=== PATIENT | male | born 1950 | race Two or more races ===

== ENCOUNTER 2020-06-10 17:22 | Inpatient (IN) | payer MEDICARE, OTHER ==
[~2020-06-10] VITALS: Ht 175.3 cm; Wt 59.2 kg
--- NOTE | 2020-06-10 19:43 | NUR ---
Patient just arrived in the unit via Ambulance accompanied by 2 EMT. Awake, alert and oriented x 4, able to follow command. Denies any pain/discomforts at this time. Colostomy bag in placed intact and patent in LLQ with small amount of liquid pinkish in color. Mid abdomen incision site dry and intact with dry dressing in placed. Routine admission care done. Plan of care initiated.
[2020-06-10 20:00] VITALS: BP 135/74
[2020-06-10] MEDS ORDERED: Z GUARD REMEDY PASTE 57 GM TUBE TOP PRN (20:00)
[2020-06-10] MEDS ORDERED: ENOX40DI SQ (21:01)
[2020-06-10] MEDS ORDERED: METH10TA2 PO (21:01)
[2020-06-11 04:00] VITALS: BP 126/64
--- NOTE | 2020-06-11 05:40 | NUR ---
Shift End Report: VS stable. Slept good. No complaint presented all night. Colostomy on LLQ remain intact and patent. Able to move all extremities with slight restrictions. No significant event reported. Continue current rehab plan of care.
--- NOTE | 2020-06-11 06:00 | NUR ---
No urine the whole night reported. Bladder scan performed, obtained 336 cc. Patient denies any bladder discomforts, slightly bladder distention noted but most, scrotal and penile area swollen. Ashlie Kumar NP made aware with order to perform In and out catheterization. Charge nurse and patient made aware.
--- NOTE | 2020-06-11 06:53 | NUR ---
In and out performed obtained 500 cc dark elijah colored urine. Patient tolerated procedure well.
[2020-06-11 08:31] VITALS: BP 111/73
[2020-06-11] MEDS: ENOXAPARIN SODIUM 40 MG/0.4 ML DISP.SYRIN SQ SCH (08:36)
[2020-06-11] MEDS ORDERED: METHADONE HCL 10 MG TABLET PO SCH (09:00)
--- NOTE | 2020-06-11 10:21 | NUR ---
patient stated he takes 70mg of methadone every day, contacted dr vel oscar to give methadone 70mg every day, spoke to pharmacist and information given to pharmacist about [facility].
[2020-06-11] MEDS ORDERED: METHADONE HCL 10 MG TABLET PO ONE (11:19)
--- NOTE | 2020-06-11 15:30 | NUR ---
patient is alert, oriented x4, verbally responsive, no sob, resp even nonlabored, skin warm and dry to touch, no chills, no fever, no nausea, no vomiting, abdomen incision is clean and dry, adrienne are intact, no drainage, no malodorous, dressing changed, ostomy is intact, noted with liquid stool, performed straight cath, unable to urinate, no distress noted
[2020-06-11 16:00] VITALS: BP 124/72
--- NOTE | 2020-06-11 17:41 | NUR ---
Ostomy care provided, stoma is red in color, no distress noted.
--- NOTE | 2020-06-11 19:30 | NUR ---
Received patient awake, alert in bed, quite apprehensive, calm, presented complaint about his medications. Instructed patient that whatever medications due will be given as needed and ordered. Colostomy bag intact and patent with small amount of liquid output. Mid abdominal dressing clean, dry and intact. Safety measures and fall prevention maintained. Continue care as planned.
[2020-06-11 20:00] VITALS: BP 131/70
--- NOTE | 2020-06-12 03:35 | NUR ---
Bladder scan performed, obtained 128 ml at this time. Patient denies any full bladder/discomforts. Tolerated procedure well.
[2020-06-12 04:00] VITALS: BP 127/69
[2020-06-12] MEDS: METHADONE HCL 10 MG TABLET PO SCH (05:43)
--- NOTE | 2020-06-12 06:49 | NUR ---
Another bladder scan performed 174 cc noted. No bladder distention/feeling fullness noted. Denies any bladder pain/discomforts.Will continue to monitor.
[2020-06-12 08:00] VITALS: BP 129/69
[2020-06-12] MEDS ORDERED: METHADONE HCL 10 MG TABLET PO SCH (09:00)
[2020-06-12] MEDS: ENOXAPARIN SODIUM 40 MG/0.4 ML DISP.SYRIN SQ SCH (09:00)
[2020-06-12 13:23] LABS: BASOPHILS # (AUTO) 0.1 K/uL (0.0-8.0); BASOPHILS % (AUTO) 0.6 % (0.0-2.0); CARBON DIOXIDE 30 mmol/L (21-32); CHLORIDE 97 mmol/L (98-107); CREATININE 0.6 mg/dL (0.6-1.3); GLUCOSE 72 mg/dL (74-106); HEMATOCRIT 30.8 % (36.7-47.1); HEMOGLOBIN 10.4 g/dL (12.5-16.3); LYMPHOCYTES # (AUTO) 0.8 K/uL (20.0-40.0); LYMPHOCYTES % (AUTO) 3.4 % (20.5-51.5); MEAN CORPUSCULAR HGB CONC 34 g/dL (32.5-36.3); MEAN CORPUSCULAR VOLUME 85.8 fL (73.0-96.2); MONOCYTES # (AUTO) 0.9 K/uL (2.0-10.0); PLATELET COUNT (AUTO) 469 K/uL (152-348); RED BLOOD CELL COUNT(AUTO) 3.59 MIL/uL (4.06-5.63); UREA NITROGEN, BLOOD 15 mg/dL (7-18); WHITE BLOOD COUNT (AUTO) 22.9 K/uL (3.6-10.2)
--- NOTE | 2020-06-12 15:45 | NUR ---
bladder scan done showed 352+ ml. got him up to [facility] to encourage void. voided 300ml. post void bladder scan done showed 0 ml in bladder
[2020-06-12 15:48] VITALS: BP 139/88
[2020-06-12] MEDS: ENSURE ENLIVE (VAN) 240 ML LIQUID PO SCH (18:19)
[2020-06-12 20:02] VITALS: BP 142/71
--- NOTE | 2020-06-12 20:45 | NUR ---
Patient alert and able to make needs known.No s/s of distress noted.On O2 at 3LPM via NC saturating at 93%.S/P exploratory laparoscopy 06/03/2020 surgical site with adrienne intact. Clean and dry. No bleeding or discharges noted.Denies pain at this time. Assisted patient to bedside commode,able to void with 200 ml urine output.Colostomy bag in place with liquid output.Safety measures in place. Will continue to monitor
[2020-06-13 04:50] VITALS: BP 133/74
[2020-06-13 05:25] LABS: BASOPHILS # (AUTO) 0.1 K/uL (0.0-8.0); BASOPHILS % (AUTO) 0.3 % (0.0-2.0); EOSINOPHILS # (AUTO) 0.1 K/uL (0.0-0.7); EOSINOPHILS % (AUTO) 0.3 % (0.0-7.0); HEMATOCRIT 27.5 % (36.7-47.1); HEMOGLOBIN 9.1 g/dL (12.5-16.3); LYMPHOCYTES # (AUTO) 0.9 K/uL (20.0-40.0); LYMPHOCYTES % (AUTO) 4.5 % (20.5-51.5); MEAN CORPUSCULAR HEMOGLOBIN 28.4 uug (23.8-33.4); MEAN CORPUSCULAR HGB CONC 33 g/dL (32.5-36.3); MEAN CORPUSCULAR VOLUME 85.6 fL (73.0-96.2); MONOCYTES % (AUTO) 5.3 % (0.0-11.0); NEUTROPHILS # (AUTO) 17.2 K/uL (1.8-8.9); NEUTROPHILS % (AUTO) 89.6 % (38.5-71.5); PLATELET COUNT (AUTO) 472 K/uL (152-348); RED BLOOD CELL COUNT(AUTO) 3.21 MIL/uL (4.06-5.63); WHITE BLOOD COUNT (AUTO) 19.2 K/uL (3.6-10.2)
[2020-06-13] MEDS: METHADONE HCL 10 MG TABLET PO SCH (05:53)
[2020-06-13 06:03] LABS: ALANINE AMINOTRANSFERASE 6 U/L (16-63); ALKALINE PHOSPHATASE 115 U/L (50-136); ASPARTATE AMINOTRANSFERASE 26 U/L (15-37); BILIRUBIN,TOTAL 0.7 mg/dL (0.2-1.0); CARBON DIOXIDE 34 mmol/L (21-32); CHLORIDE 101 mmol/L (98-107); CREATININE 0.6 mg/dL (0.6-1.3); GLUCOSE 102 mg/dL (74-106); MAGNESIUM 1.8 mg/dL (1.8-2.4); PHOSPHOROUS 3.1 mg/dL (2.5-4.9); POTASSIUM 4.4 mmol/L (3.5-5.1); TOTAL PROTEIN, SERUM 4.6 g/dL (6.4-8.2); UREA NITROGEN, BLOOD 14 mg/dL (7-18)
--- NOTE | 2020-06-13 06:27 | NUR ---
Patient voided well 2x .Compliant with medication and care.Received Albumin result 1.3 .MD nettles made aware. Will endorse to oncoming shift.
--- NOTE | 2020-06-13 07:30 | NUR ---
Received awake wanting to go to the bathroom, voided well in the commode. Alert and oriented. No c/o pain. No respiratory distress noted. Bed low and locked. Safety measures maintained. Needs attended.
[2020-06-13 08:00] VITALS: BP 137/68
[2020-06-13] MEDS: ENSURE ENLIVE (VAN) 240 ML LIQUID PO SCH ×3 (08:36→18:03)
[2020-06-13] MEDS: ENOXAPARIN SODIUM 40 MG/0.4 ML DISP.SYRIN SQ SCH (08:39)
--- NOTE | 2020-06-13 13:08 | NUR ---
Patient has voided 2x in the commode since beginning of shift.
[2020-06-13 16:15] VITALS: BP 139/71
--- NOTE | 2020-06-13 18:56 | NUR ---
Patient in bed, dozing on and off. No respiratory distress on 3lpm via nc. Denies pain. Seen by Paco Thomas NP this morning and report given. Patient voided well x3 during this shift. No hematuria noted. Safety measures maintained. Needs attended. Kept comfortable. Call light within reach.
[2020-06-13 19:41] VITALS: BP 148/76
--- NOTE | 2020-06-13 20:49 | NUR ---
Awake alert and oriented x3-4 with periods of forgetfulness at times. Has hx of explor lap wit Dr Ray. Abdominal dressing clean dry and intact with adrienne in placed. Denies any pain nor any discomfort. Has a colostomy with soft brownish stool noted. Fall precautions maintained. Siderails up for safety. Needs attended. Will monitor patient. O2 @ 3L via nasal cannula. pulse ox 96%.
--- NOTE | 2020-06-13 20:52 | NUR ---
INDIVIDUALIZED PLAN OF CARE
[2020-06-14 04:30] VITALS: BP 141/74
[2020-06-14] MEDS: METHADONE HCL 10 MG TABLET PO SCH (06:02)
[2020-06-14 08:00] VITALS: BP 133/66
--- NOTE | 2020-06-14 09:00 | NUR ---
Patient in bed, alert and oriented x 4 denies of any pain at this time, call light placed within reach. Patient on oxygen via nasal cannula at 3LPM saturating at 97%. Patient went off the unit for therapy and came back after an hour. All needs met in a timely manner. Call light within reach.
[2020-06-14] MEDS: ENOXAPARIN SODIUM 40 MG/0.4 ML DISP.SYRIN SQ SCH (09:08)
[2020-06-14] MEDS: ENSURE ENLIVE (VAN) 240 ML LIQUID PO SCH ×3 (09:08→17:00)
--- NOTE | 2020-06-14 16:00 | NUR ---
Colostomy bag intact and patient able to void using the bedside commode bladder is not distended.
[2020-06-14 16:30] VITALS: BP 125/74
--- NOTE | 2020-06-14 19:49 | NUR ---
Patient in bed, alert and oriented x 4 denies of any pain at this time, Patient ask for Urinal voided with no distress 225 ml no blader soft no distention noted call light placed within reach. Patient on oxygen via nasal cannula at 3LPM saturating 95%. colostomy bag intact noted with stool empty bag and cleaned. Safety measures observed. Call light with in reach.
[2020-06-14 20:07] VITALS: BP 145/75
[2020-06-15 05:09] VITALS: BP 141/78
--- NOTE | 2020-06-15 05:23 | NUR ---
Patient AXOX4 verbally responsive,on 3L/PM NC saturating 95% no SOB resp even nonlabored, skin warm and dry to touch. Abdomen incision is clean and dry, adrienne are intact, no drainage, no malodorous, dressing intact, ostomy noted with liquid stool, ostomy care provided. Patient utilizing urinal voiding well with no discomfort (900 ml) voided in this shift Slept intermittently, safety measures observed all time call light with in reach. Will endorse accordingly to AM shift.
[2020-06-15] MEDS: METHADONE HCL 10 MG TABLET PO SCH (06:04)
[2020-06-15 08:00] VITALS: BP 152/80
--- NOTE | 2020-06-15 08:30 | NUR ---
Patient is alert and oriented x 2-3 , patient is not so cooperative upon assessment. Assisted the patient to bedside commode to urinate after 2 hours patient wants to use the urinal , able to urinate , bladder is not distended , colostomy bag intact, dressing in the abdomen intact, all needs met promptly, call light placed within reach.
[2020-06-15] MEDS: ENSURE ENLIVE (VAN) 240 ML LIQUID PO SCH ×3 (09:00→17:00)
[2020-06-15] MEDS: ENOXAPARIN SODIUM 40 MG/0.4 ML DISP.SYRIN SQ SCH (09:33)
--- NOTE | 2020-06-15 11:30 | NUR ---
patient does not want to eat when encouraged to finish his ensure , patient said yes . After 30mins patient didnt drink his ensure. Asked patient what food he wants to I can call the dietary but patient stated " No I don't want to eat". Encouraged the patient to drink water as well.
[2020-06-15 16:00] VITALS: BP 153/86
[2020-06-15 20:52] VITALS: BP 153/75
[2020-06-15] MEDS: ACETAMINOPHEN 325 MG TABLET PO PRN (21:56)
--- NOTE | 2020-06-15 22:30 | NUR ---
Patient is alert and oriented X3, patient refuse to eat snack offer choice of ensure patient stated will try to finish. use the urinal ,voided times 2 with no discomfort bladder is not distended , ostomy bag intact, dressing in the abdomen intact, pt c/o pain mild pain PRN Tylenol administered as ordered and non pharmacological efforts initiated. All needs anticipated,call light placed within reach.
--- NOTE | 2020-06-15 23:57 | NUR ---
Patient resting in bed, pain relieved, intermittent sleeping, finished ensure, fluids encouraged, kept clean and dry. All needs anticipated. Kept call light with in reach.
[2020-06-16 04:35] VITALS: BP 115/73
[2020-06-16] MEDS: METHADONE HCL 10 MG TABLET PO SCH (05:39)
[2020-06-16 07:50] VITALS: BP 163/88
[2020-06-16] MEDS: ENOXAPARIN SODIUM 40 MG/0.4 ML DISP.SYRIN SQ SCH (09:43)
[2020-06-16] MEDS: ENSURE ENLIVE (VAN) 240 ML LIQUID PO SCH ×3 (09:59→17:00)
--- NOTE | 2020-06-16 10:00 | NUR ---
Patient in bed alert , able to void using urinal , bladder is not distended. Urine yellow in color. Colostomy bag intact. Encourage patient to eat but patient only wants to take a sip of ensure. All needs met in a timely [id number]. Call light placed within reach. On oxygen via nasal cannula at 3lpm saturating at 95%
[2020-06-16] MEDS: ACETAMINOPHEN 325 MG TABLET PO PRN (10:56)
--- NOTE | 2020-06-16 19:00 | NUR ---
Patient dressing was changed, colostomy bag changed and emptied the urinal .
[2020-06-16 21:02] VITALS: BP 173/89
[2020-06-16] MEDS ORDERED: PIPERACILLIN SODIUM/TAZOBACTAM 3.375 G in IV DEXTROSE 5% 50 ML IV SCH (22:00)
[2020-06-16] MEDS ORDERED: PIPERACILLIN/TAZOBACTAM/D5W 100 ML IV ONE (22:18)
[2020-06-16] MEDS: PIPERACILLIN SODIUM/TAZOBACTAM 3.375 G in IV DEXTROSE 5% 50 ML IV SCH (22:38)
--- NOTE | 2020-06-17 00:08 | NUR ---
Resting in bed. AAox3-4 VSS Mid abdominal dressing intact Patient started on IV ABT tolerated well. No ill effects noted. Left hand INT flushed and patent. Voiding well. Needs attended. Will monitor patient.
--- NOTE | 2020-06-17 00:27 | NUR ---
awake alert and oriented x3-4 needs attended. Colostomy bag intact, functioning well with moderate amount of soft BM noted. Voiding well in the urinal. Fall precautions maintained. Siderails up for safety. Seen by infectious disease. Patient started on zosyn piperacillin 3.375 q 8 hrs. Tolerated well. No ill effects noted. Will monitor patient. A
[2020-06-17 05:02] VITALS: BP 141/85
[2020-06-17] MEDS: METHADONE HCL 10 MG TABLET PO SCH (05:26)
[2020-06-17] MEDS: PIPERACILLIN SODIUM/TAZOBACTAM 3.375 G in IV DEXTROSE 5% 50 ML IV SCH (05:27)
[2020-06-17 07:08] LABS: BASOPHILS # (AUTO) 0.1 K/uL (0.0-8.0); BASOPHILS % (AUTO) 0.5 % (0.0-2.0); EOSINOPHILS # (AUTO) 0.2 K/uL (0.0-0.7); EOSINOPHILS % (AUTO) 1.5 % (0.0-7.0); HEMATOCRIT 28.4 % (36.7-47.1); HEMOGLOBIN 9.9 g/dL (12.5-16.3); LYMPHOCYTES # (AUTO) 0.7 K/uL (20.0-40.0); LYMPHOCYTES % (AUTO) 6.9 % (20.5-51.5); MEAN CORPUSCULAR HEMOGLOBIN 29.9 uug (23.8-33.4); MEAN CORPUSCULAR HGB CONC 35 g/dL (32.5-36.3); MEAN CORPUSCULAR VOLUME 85.4 fL (73.0-96.2); MONOCYTES % (AUTO) 9.9 % (0.0-11.0); NEUTROPHILS # (AUTO) 8.1 K/uL (1.8-8.9); NEUTROPHILS % (AUTO) 81.2 % (38.5-71.5); PLATELET COUNT (AUTO) 664 K/uL (152-348); RED BLOOD CELL COUNT(AUTO) 3.32 MIL/uL (4.06-5.63)
[2020-06-17 07:23] LABS: CARBON DIOXIDE 38 mmol/L (21-32); CHLORIDE 96 mmol/L (98-107); CREATININE 0.5 mg/dL (0.6-1.3); GLUCOSE 135 mg/dL (74-106); MAGNESIUM 1.8 mg/dL (1.8-2.4); PHOSPHOROUS 2.4 mg/dL (2.5-4.9); POTASSIUM 3.2 mmol/L (3.5-5.1); UREA NITROGEN, BLOOD 7 mg/dL (7-18)
[2020-06-17 07:36] VITALS: BP 115/76
[2020-06-17] MEDS: ENOXAPARIN SODIUM 40 MG/0.4 ML DISP.SYRIN SQ SCH (08:17)
[2020-06-17] MEDS: ENSURE ENLIVE (VAN) 240 ML LIQUID PO SCH ×3 (08:17→14:02)
[2020-06-17] MEDS ORDERED: POTASSIUM CHLORIDE 20 MEQ TAB.PRT.SR PO ONE (09:15)
[2020-06-17] MEDS: ACETAMINOPHEN 325 MG TABLET PO PRN ×2 (10:33→17:28)
--- NOTE | 2020-06-17 12:35 | NUR ---
Patient is alert, oriented x4, verbally responsive, no sob, resp even nonlabored, skin warm and dry to touch, abdomen incision is clean and dry, colostomy changed, medium formed BM in the colostomy, stoma is red in color, patient is saying he has a pain in his stomach, pointed to left lower abdomen, dr murdock made aware, Tylenol administered, did not help much, contacted dr crowder for pain management, waiting for response, patient made aware
[2020-06-17] MEDS: ONDANSETRON 4 MG/2 ML VIAL IV PRN (13:13)
[2020-06-17] MEDS: PIPERACILLIN SODIUM/TAZOBACTAM 3.37 G in IV DEXTROSE 5% 100 ML IV SCH ×2 (13:28→21:05)
[2020-06-17] MEDS ORDERED: HYDROMORPHONE 1 MG/1 ML DISP.SYRIN IV ONE (13:30)
[2020-06-17 14:52] VITALS: BP 140/77
[2020-06-17 14:52] LABS: BAND % (MANUAL) 2 % (0-10); LYMPHOCYTES % (MANUAL) 5 % (20-40); MONOCYTES % (MANUAL) 9 % (2-10); NEUTROPHILS % (MANUAL) 84 % (42-75)
--- NOTE | 2020-06-17 15:42 | NUR ---
patient verbalizing anxiety, concerned addressed, questions answered, stayed with patient, spoke to dr murdock, with order to do psych eval, dr nicholas made aware about consult
[2020-06-17] MEDS ORDERED: NEUTRA PHOS PACKET PO ONE (16:30)
--- NOTE | 2020-06-17 17:02 | NUR ---
KUB result is reviewed by dr murdock, with no order at this time, patient has liquid stool dark brown color in the colostomy bag, bowel sounds are active in all 4 quadrants, patient still complaining dull pain in stomach and mild nausea. continue to monitor
--- NOTE | 2020-06-17 20:15 | NUR ---
INTERDISCIPLINARY TEAM CONFERENCE
[2020-06-17] MEDS: MIRTAZAPINE 15 MG TABLET PO SCH (20:23)
[2020-06-17 20:37] VITALS: BP 148/67
--- NOTE | 2020-06-17 20:53 | NUR ---
resting in bed watching TV upon initial rounds. VSS. No acute distress noted. Kept comfortable. Patient on IV ABT given as scheduled. No ill effects noted. Colostomy intact, dark stools noted. Voiding frequently in the urinal. VSS. Will monitor patient. Fall precautions maintained. Siderails up for safety.
[2020-06-18 04:00] VITALS: BP 141/70
[2020-06-18] MEDS: METHADONE HCL 10 MG TABLET PO SCH (05:28)
[2020-06-18] MEDS: PIPERACILLIN SODIUM/TAZOBACTAM 3.37 G in IV DEXTROSE 5% 100 ML IV SCH ×3 (05:29→21:20)
--- NOTE | 2020-06-18 05:54 | NUR ---
End of shift notes: Slept well most of the shift. No acute distress noted. IV ABT given as schedule. No ill effects noted. All needs attended. VSS.
[2020-06-18 06:20] LABS: CARBON DIOXIDE 35 mmol/L (21-32); CHLORIDE 101 mmol/L (98-107); CREATININE 0.5 mg/dL (0.6-1.3); GLUCOSE 85 mg/dL (74-106); PHOSPHOROUS 2.6 mg/dL (2.5-4.9); POTASSIUM 4.3 mmol/L (3.5-5.1); UREA NITROGEN, BLOOD 10 mg/dL (7-18)
[2020-06-18 07:55] VITALS: BP 135/81
[2020-06-18] MEDS: ENOXAPARIN SODIUM 40 MG/0.4 ML DISP.SYRIN SQ SCH ×2 (09:00→12:24)
[2020-06-18] MEDS: ENSURE ENLIVE (VAN) 240 ML LIQUID PO SCH (09:11)
[2020-06-18 09:46] LABS: BASOPHILS # (AUTO) 0.1 K/uL (0.0-8.0); BASOPHILS % (AUTO) 0.7 % (0.0-2.0); EOSINOPHILS # (AUTO) 0.5 K/uL (0.0-0.7); EOSINOPHILS % (AUTO) 3.9 % (0.0-7.0); HEMATOCRIT 34.3 % (36.7-47.1); HEMOGLOBIN 11.4 g/dL (12.5-16.3); LYMPHOCYTES # (AUTO) 1.9 K/uL (20.0-40.0); LYMPHOCYTES % (AUTO) 14.9 % (20.5-51.5); MEAN CORPUSCULAR HEMOGLOBIN 28.8 uug (23.8-33.4); MEAN CORPUSCULAR HGB CONC 33 g/dL (32.5-36.3); MEAN CORPUSCULAR VOLUME 86.8 fL (73.0-96.2); MONOCYTES # (AUTO) 1.4 K/uL (2.0-10.0); MONOCYTES % (AUTO) 10.6 % (0.0-11.0); NEUTROPHILS % (AUTO) 69.9 % (38.5-71.5); PLATELET COUNT (AUTO) 793 K/uL (152-348); RED BLOOD CELL COUNT(AUTO) 3.95 MIL/uL (4.06-5.63); WHITE BLOOD COUNT (AUTO) 12.9 K/uL (3.6-10.2)
[2020-06-18 10:29] LABS: *OCCULT BLOOD STOOL NEGATIVE (NEGATIVE)
[2020-06-18] MEDS: ONDANSETRON 4 MG/2 ML VIAL IV PRN (12:33)
--- NOTE | 2020-06-18 13:42 | NUR ---
patient is alert, oriented x4, no sob, continue supplemental oxygen, abdomen incision is clean and dry, no drainage, no malodor noted, colostomy intact, drainage large formed stool, stoma is red in color, patient denied any stomach pain today, however still complained nausea, and poor appetite, which is being managed with medications as ordered, patient noted with sad facial expression, examined by dr Watson psychiatrist, will be started on additional antidepressant as recommended by psychiatrist.
[2020-06-18] MEDS: SERTRALINE HCL 50 MG TABLET PO SCH (14:07)
[2020-06-18 15:26] VITALS: BP 122/80
[2020-06-18] MEDS: MIRTAZAPINE 15 MG TABLET PO SCH (20:25)
[2020-06-18 20:31] VITALS: BP 122/69
--- NOTE | 2020-06-18 22:04 | NUR ---
Condition unchanged. Colostomy intact, dark black stools noted. Abdominal dressing in placed. Denies any pain nor any discomfort. Voiding well in the urinal. IV ABT given as scheduled. No side effects noted. No acute distress noted. Will monitor patient.
[2020-06-19 04:00] VITALS: BP 121/78
[2020-06-19] MEDS: METHADONE HCL 10 MG TABLET PO SCH (05:43)
[2020-06-19] MEDS: PIPERACILLIN SODIUM/TAZOBACTAM 3.37 G in IV DEXTROSE 5% 100 ML IV SCH ×3 (05:43→21:09)
[2020-06-19 08:00] VITALS: BP 132/79
[2020-06-19] MEDS: ENOXAPARIN SODIUM 40 MG/0.4 ML DISP.SYRIN SQ SCH (08:27)
[2020-06-19] MEDS: ENSURE ENLIVE (VAN) 240 ML LIQUID PO SCH (08:27)
[2020-06-19] MEDS: SERTRALINE HCL 50 MG TABLET PO SCH (08:27)
[2020-06-19] MEDS: ENSURE WITH FIBER 237 ML LIQUID (CHOCOLATE) PO SCH ×5 (09:57→20:13)
[2020-06-19] MEDS: ACETAMINOPHEN 325 MG TABLET PO PRN (12:24)
[2020-06-19] MEDS: ONDANSETRON 4 MG/2 ML VIAL IV PRN (12:24)
--- NOTE | 2020-06-19 15:15 | NUR ---
abdomen incision is clean and dry, adrienne still intact, no drainage noted, no malodorous noted, colostomy intact, draining formed large stool, patient still noted with poor appetite, however drinking chocolate ensure, using urinal, voiding well, no sob, resp even nonlabored, ambulated with PT, heels floated on pillows while in bed ,sat on chair today good amount of time, tolerated well, no distress noted, denied any suicidal thoughts. continue to monitor
[2020-06-19 16:00] VITALS: BP 100/64
[2020-06-19 20:00] VITALS: BP 124/76
[2020-06-19] MEDS: MIRTAZAPINE 15 MG TABLET PO SCH (20:13)
--- NOTE | 2020-06-19 22:56 | NUR ---
Received pt resting in bed. AAO x4. No acute distress noted. Denies pain/ discomfort. Denies nausea. Noted poor appetite but tolerates chocolate Ensure. Pt is on IV antibiotic. Due meds given as ordered. Colostomy bag patent and intact, stoma is red in color. Abdomen incision, clean and dry, no drainage noted. Turned and repositioned. Both heels offloaded. Safety measures maintained. Call light and personal items within reach. Will continue to monitor.
[2020-06-20 04:00] VITALS: BP 129/76
[2020-06-20] MEDS: PIPERACILLIN SODIUM/TAZOBACTAM 3.37 G in IV DEXTROSE 5% 100 ML IV SCH ×3 (05:00→21:47)
[2020-06-20] MEDS: METHADONE HCL 10 MG TABLET PO SCH (05:08)
[2020-06-20 08:00] VITALS: BP 137/81
--- NOTE | 2020-06-20 09:00 | NUR ---
Patient in bed, alert uncooperative upon assessment. Dressing changed on his abdomen and colostomy bag changed, IV site on the left forearm intact and all due meds give as ordered. Encouraged patient to eat but refused. All needs met promptly.
[2020-06-20] MEDS: ENOXAPARIN SODIUM 40 MG/0.4 ML DISP.SYRIN SQ SCH (09:44)
[2020-06-20] MEDS: SERTRALINE HCL 50 MG TABLET PO SCH (09:45)
[2020-06-20] MEDS: ENSURE WITH FIBER 237 ML LIQUID (CHOCOLATE) PO SCH ×4 (09:47→21:47)
[2020-06-20] MEDS: ACETAMINOPHEN 325 MG TABLET PO PRN ×3 (09:51→20:23)
[2020-06-20] MEDS: ONDANSETRON 4 MG/2 ML VIAL IV PRN ×2 (09:51→20:16)
[2020-06-20 10:50] LABS: BASOPHILS # (AUTO) 0.1 K/uL (0.0-8.0); BASOPHILS % (AUTO) 1.1 % (0.0-2.0); EOSINOPHILS # (AUTO) 0.2 K/uL (0.0-0.7); EOSINOPHILS % (AUTO) 1.4 % (0.0-7.0); HEMATOCRIT 28.2 % (36.7-47.1); HEMOGLOBIN 9.6 g/dL (12.5-16.3); LYMPHOCYTES # (AUTO) 0.5 K/uL (20.0-40.0); LYMPHOCYTES % (AUTO) 3.9 % (20.5-51.5); MEAN CORPUSCULAR HEMOGLOBIN 29.6 uug (23.8-33.4); MEAN CORPUSCULAR HGB CONC 34 g/dL (32.5-36.3); MEAN CORPUSCULAR VOLUME 87.1 fL (73.0-96.2); MONOCYTES # (AUTO) 1.2 K/uL (2.0-10.0); MONOCYTES % (AUTO) 8.8 % (0.0-11.0); NEUTROPHILS # (AUTO) 11.4 K/uL (1.8-8.9); NEUTROPHILS % (AUTO) 84.8 % (38.5-71.5); PLATELET COUNT (AUTO) 615 K/uL (152-348); RED BLOOD CELL COUNT(AUTO) 3.24 MIL/uL (4.06-5.63); WHITE BLOOD COUNT (AUTO) 13.5 K/uL (3.6-10.2)
[2020-06-20 11:02] LABS: CARBON DIOXIDE 34 mmol/L (21-32); CHLORIDE 98 mmol/L (98-107); CREATININE 0.5 mg/dL (0.6-1.3); GLUCOSE 117 mg/dL (74-106); POTASSIUM 4.3 mmol/L (3.5-5.1); UREA NITROGEN, BLOOD 16 mg/dL (7-18)
[2020-06-20 15:25] VITALS: BP 128/77
[2020-06-20 20:00] VITALS: BP 140/78
[2020-06-20 20:38] VITALS: BP 140/78
[2020-06-20] MEDS: MIRTAZAPINE 15 MG TABLET PO SCH (21:47)
--- NOTE | 2020-06-20 23:11 | NUR ---
olson catheter inserted as ordered x1 attempt, fr 16, patient tolerated procedure urine output about 150 clear yellow urine.
[2020-06-20] MEDS: TAMSULOSIN HCL 0.4 MG CAP.SR.24H PO SCH (23:19)
[2020-06-21 04:00] VITALS: BP 143/80
[2020-06-21] MEDS: PIPERACILLIN SODIUM/TAZOBACTAM 3.37 G in IV DEXTROSE 5% 100 ML IV SCH ×3 (05:27→21:29)
[2020-06-21] MEDS: METHADONE HCL 10 MG TABLET PO SCH (05:28)
[2020-06-21 05:39] VITALS: BP 143/80
[2020-06-21 08:00] VITALS: BP 122/66
[2020-06-21] MEDS: SERTRALINE HCL 50 MG TABLET PO SCH (09:03)
[2020-06-21] MEDS: ONDANSETRON 4 MG/2 ML VIAL IV PRN ×2 (09:06→18:13)
[2020-06-21] MEDS: ENOXAPARIN SODIUM 40 MG/0.4 ML DISP.SYRIN SQ SCH (09:09)
[2020-06-21] MEDS: ENSURE WITH FIBER 237 ML LIQUID (CHOCOLATE) PO SCH ×4 (09:11→21:11)
[2020-06-21] MEDS: ALPRAZOLAM 0.25 MG TABLET PO SCH ×3 (12:50→21:27)
[2020-06-21 16:03] VITALS: BP 119/74
--- NOTE | 2020-06-21 18:30 | NUR ---
Xanax effective. Pt states that his anxiety is less. Call light is within reach.
--- NOTE | 2020-06-21 19:50 | NUR ---
Received patient AAO X 4 resting in bed, Mcmillan cath intact yellow color urine flowing, patient calm and relax no c/o pain,
[2020-06-21 20:00] VITALS: BP 132/82
[2020-06-21] MEDS: MIRTAZAPINE 15 MG TABLET PO SCH (21:25)
[2020-06-21] MEDS: TAMSULOSIN HCL 0.4 MG CAP.SR.24H PO SCH (21:25)
--- NOTE | 2020-06-21 22:22 | NUR ---
Received pt resting in bed and watching TV: AAO x3, Italian speaking, able to make needs known. No acute distress noted. Denies pain/ discomfort. Due medication administered as ordered. Turned and repositioned. Both heels offloaded. Safety measures maintained. Clean and dry, Call light and personal items within reach. Will continue to monitor.
--- NOTE | 2020-06-21 23:55 | NUR ---
Patient resting in bed. AAO x3 patient noted very anxious administer Xanax 0.25 mg at 2127 and administer all due medication, helped patient , Denies pain, nausea. Noted poor appetite but tolerates chocolate Ensure. Pt is on IV antibiotic. Colostomy bag patent and intact, stoma is red in color. Abdomen incision, clean and dry, no drainage noted. Turned and repositioned. Both heels offloaded. Safety measures maintained. Call light and personal items within reach. Will continue to monitor.
[2020-06-22 04:00] VITALS: BP 127/76
[2020-06-22] MEDS: METHADONE HCL 10 MG TABLET PO SCH (05:30)
[2020-06-22] MEDS: PIPERACILLIN SODIUM/TAZOBACTAM 3.37 G in IV DEXTROSE 5% 100 ML IV SCH ×3 (05:31→21:17)
[2020-06-22 08:00] VITALS: BP 105/69
[2020-06-22] MEDS: SERTRALINE HCL 50 MG TABLET PO SCH (08:43)
[2020-06-22] MEDS: ENOXAPARIN SODIUM 40 MG/0.4 ML DISP.SYRIN SQ SCH (08:45)
[2020-06-22] MEDS: ENSURE WITH FIBER 237 ML LIQUID (CHOCOLATE) PO SCH ×4 (08:47→21:14)
[2020-06-22] MEDS: ALPRAZOLAM 0.25 MG TABLET PO SCH ×2 (08:47→16:54)
[2020-06-22] MEDS: ONDANSETRON 4 MG/2 ML VIAL IV PRN (09:54)
--- NOTE | 2020-06-22 12:03 | NUR ---
Patient noted with decreased oral intake and low appetite. Called Dr. Brewer and made aware with new order.
[2020-06-22 17:01] VITALS: BP 90/60
--- NOTE | 2020-06-22 18:32 | NUR ---
Patient remains alert, oriented x 3, not in any form of distress, on room air. He denies any pain. Complained of nausea during the shift, given PRN medication as ordered with noted relief. Peripheral IV site on the left forearm intact and patent, no noted signs of infection. Colostomy bag in place with soft formed stools emptied. Assisted with his needs promptly. Patient sat up on chair for dinner but only drank ensure. Patient participated with therapy today. Patient seen by Dr. Ramon with no new order.
[2020-06-22 20:00] VITALS: BP 101/60
[2020-06-22] MEDS: MEGESTROL ACETATE 400 MG/10 ML LIQUID UDC PO SCH (21:13)
[2020-06-22] MEDS: MIRTAZAPINE 15 MG TABLET PO SCH (21:13)
[2020-06-22] MEDS: TAMSULOSIN HCL 0.4 MG CAP.SR.24H PO SCH (21:13)
[2020-06-23 04:00] VITALS: BP 110/55
[2020-06-23] MEDS: PIPERACILLIN SODIUM/TAZOBACTAM 3.37 G in IV DEXTROSE 5% 100 ML IV SCH ×3 (05:26→21:22)
[2020-06-23] MEDS: METHADONE HCL 10 MG TABLET PO SCH (05:38)
--- NOTE | 2020-06-23 05:58 | NUR ---
Shift End Report: VSS. Continue on IV antibiotics as ordered for PNA without s/s of adverse reaction noted. IV RA intact and patent with no s/s of infiltration. Still on Methadone 70 mg po as ordered. Slept good. F/C intact and patent with adequate amount of clear yellow urine output. All needs attended and met. No significant event reported all night. Continue current rehab plan of care.
[2020-06-23 08:00] VITALS: BP 99/60
[2020-06-23] MEDS: ALPRAZOLAM 0.25 MG TABLET PO SCH ×2 (09:07→16:36)
[2020-06-23] MEDS: SERTRALINE HCL 50 MG TABLET PO SCH (09:07)
[2020-06-23] MEDS: ENSURE WITH FIBER 237 ML LIQUID (CHOCOLATE) PO SCH ×4 (09:12→20:08)
[2020-06-23] MEDS: ENOXAPARIN SODIUM 40 MG/0.4 ML DISP.SYRIN SQ SCH (09:12)
[2020-06-23] MEDS: MEGESTROL ACETATE 400 MG/10 ML LIQUID UDC PO SCH ×2 (09:25→20:07)
[2020-06-23 15:47] VITALS: BP 94/57
--- NOTE | 2020-06-23 18:45 | NUR ---
no acute distress noted, alert, oriented x4, no sob, still noted with poor appetite,however noted eating ice cream and drinking juice in addition to drinking ensures, continue to monitor
--- NOTE | 2020-06-23 19:30 | NUR ---
In bed, awake, not in distress, denies any pain/discomforts at this time. Abdominal incision left open to air, dry, no s/s of infection. Colostomy bag on LLQ intact and patent with small amount of brown colored stool, with light pink ostomy site, no bleeding/swelling noted. HL on LFA intact and patent, no s/s of infiltration. Safety measures and fall prevention maintain. Continue care as planned.
[2020-06-23 19:44] VITALS: BP 91/57
[2020-06-23] MEDS: MIRTAZAPINE 15 MG TABLET PO SCH (20:07)
[2020-06-23] MEDS: TAMSULOSIN HCL 0.4 MG CAP.SR.24H PO SCH (20:07)
[2020-06-23] MEDS: ACETAMINOPHEN 325 MG TABLET PO PRN (20:11)
[2020-06-24 04:53] VITALS: BP 105/63
[2020-06-24] MEDS: METHADONE HCL 10 MG TABLET PO SCH (05:38)
--- NOTE | 2020-06-24 05:55 | NUR ---
Shift End Report: Appetite slowly improving. Able to consume 2 bottle of Ensure last night with some encouragement. Medicated once with Tylenol for complaint of discomforts. Zosyn IV dc'd last night with no s/s of adverse reaction noted. F/c intact and patent with adequate amount of clear yellow urine output. No problem noted on colostomy, intact/patent. All needs attended and met. Continue current rehab plan of care.
[2020-06-24 06:57] LABS: BASOPHILS # (AUTO) 0.1 K/uL (0.0-8.0); EOSINOPHILS # (AUTO) 0.7 K/uL (0.0-0.7); EOSINOPHILS % (AUTO) 4.9 % (0.0-7.0); HEMATOCRIT 26.9 % (36.7-47.1); HEMOGLOBIN 9.1 g/dL (12.5-16.3); LYMPHOCYTES # (AUTO) 1.4 K/uL (20.0-40.0); LYMPHOCYTES % (AUTO) 10.2 % (20.5-51.5); MEAN CORPUSCULAR HEMOGLOBIN 29.4 uug (23.8-33.4); MEAN CORPUSCULAR HGB CONC 34 g/dL (32.5-36.3); MEAN CORPUSCULAR VOLUME 87.2 fL (73.0-96.2); MONOCYTES # (AUTO) 1.7 K/uL (2.0-10.0); MONOCYTES % (AUTO) 13.2 % (0.0-11.0); NEUTROPHILS # (AUTO) 9.4 K/uL (1.8-8.9); NEUTROPHILS % (AUTO) 70.7 % (38.5-71.5); PLATELET COUNT (AUTO) 679 K/uL (152-348); RED BLOOD CELL COUNT(AUTO) 3.08 MIL/uL (4.06-5.63); WHITE BLOOD COUNT (AUTO) 13.3 K/uL (3.6-10.2)
[2020-06-24 07:08] LABS: ALANINE AMINOTRANSFERASE 23 U/L (16-63); ALKALINE PHOSPHATASE 137 U/L (50-136); ASPARTATE AMINOTRANSFERASE 30 U/L (15-37); BILIRUBIN,TOTAL 0.2 mg/dL (0.2-1.0); CARBON DIOXIDE 35 mmol/L (21-32); CHLORIDE 101 mmol/L (98-107); CREATININE 0.6 mg/dL (0.6-1.3); GLUCOSE 118 mg/dL (74-106); MAGNESIUM 1.9 mg/dL (1.8-2.4); PHOSPHOROUS 2.5 mg/dL (2.5-4.9); POTASSIUM 4.2 mmol/L (3.5-5.1); TOTAL PROTEIN, SERUM 5.9 g/dL (6.4-8.2); UREA NITROGEN, BLOOD 22 mg/dL (7-18)
[2020-06-24 08:00] VITALS: BP 108/63
[2020-06-24] MEDS: ALPRAZOLAM 0.25 MG TABLET PO SCH ×2 (08:18→16:59)
[2020-06-24] MEDS: MEGESTROL ACETATE 400 MG/10 ML LIQUID UDC PO SCH (08:18)
[2020-06-24] MEDS: SERTRALINE HCL 50 MG TABLET PO SCH (08:18)
[2020-06-24] MEDS: ENSURE WITH FIBER 237 ML LIQUID (CHOCOLATE) PO SCH ×4 (08:19→20:16)
[2020-06-24] MEDS: ENOXAPARIN SODIUM 40 MG/0.4 ML DISP.SYRIN SQ SCH (08:25)
[2020-06-24] MEDS: DRONABINOL 2.5 MG CAPSULE PO SCH ×2 (09:36→16:59)
--- NOTE | 2020-06-24 12:27 | NUR ---
olson dcd as ordered, patient agreed
[2020-06-24] MEDS: PROTEIN SUPPLEMENT (PROSTAT) 30 ML LIQUID PO SCH ×2 (12:30→17:01)
--- NOTE | 2020-06-24 15:53 | NUR ---
INTERDISCIPLINARY TEAM CONFERENCE
[2020-06-24 16:00] VITALS: BP 95/61
--- NOTE | 2020-06-24 18:27 | NUR ---
patient still noted with poor appetite, drinking only ensures at meal times and some ice cream, encouraged to eat, patient stated he does not feel hungry, colostomy changed, large formed BM, bowel sounds active, stoma is red in color, incision site is clean and dry. no distress noted, no nausea, no vomiting, no chills noted
--- NOTE | 2020-06-24 19:30 | NUR ---
Awake, in bed, not in distress. Denies any pain/discomforts at this time. Encouraged increased of PO intake as tolerated. Offered Chocolate Ensure per preference. Safety measures and fall prevention maintained. Continue care as planned.
[2020-06-24 20:00] VITALS: BP 102/76
[2020-06-24] MEDS: MIRTAZAPINE 15 MG TABLET PO SCH (20:15)
[2020-06-24] MEDS: TAMSULOSIN HCL 0.4 MG CAP.SR.24H PO SCH (20:15)
[2020-06-25 05:05] VITALS: BP 127/65
[2020-06-25] MEDS: METHADONE HCL 10 MG TABLET PO SCH (05:28)
--- NOTE | 2020-06-25 05:59 | NUR ---
Shift End Report: Slept well. No complaint presented all night. Appetite quite improving. All needs attended and met. Continue current rehab plan of care.
[2020-06-25] MEDS: ALPRAZOLAM 0.25 MG TABLET PO SCH ×2 (08:00→16:18)
[2020-06-25] MEDS: PROTEIN SUPPLEMENT (PROSTAT) 30 ML LIQUID PO SCH ×3 (08:00→16:20)
[2020-06-25] MEDS: SERTRALINE HCL 50 MG TABLET PO SCH (08:00)
[2020-06-25] MEDS: DRONABINOL 2.5 MG CAPSULE PO SCH ×2 (08:00→16:18)
[2020-06-25] MEDS: ENOXAPARIN SODIUM 40 MG/0.4 ML DISP.SYRIN SQ SCH (08:05)
[2020-06-25] MEDS: ENSURE WITH FIBER 237 ML LIQUID (CHOCOLATE) PO SCH ×4 (08:07→20:42)
[2020-06-25 08:40] VITALS: BP 93/52
--- NOTE | 2020-06-25 11:43 | NUR ---
patient still noted with poor appetite, only drinking ensures and ice cream, patient stated he feels very down, noted with sad facial expression, spoke to dr Nixon psychatrist to see patient, dr hawkins made aware about patient current condition as well.
[2020-06-25 15:46] VITALS: BP 105/63
--- NOTE | 2020-06-25 16:04 | NUR ---
patient is voiding well status post olson discontinued on 06/24/20
[2020-06-25 20:00] VITALS: BP 98/58
[2020-06-25] MEDS: MIRTAZAPINE 15 MG TABLET PO SCH (20:42)
[2020-06-25] MEDS: TAMSULOSIN HCL 0.4 MG CAP.SR.24H PO SCH (20:42)
--- NOTE | 2020-06-25 21:15 | NUR ---
Received patient resting in bed. Calm and cooperative AxOx4, no acute distress noted. VSS, denies any pain or discomfort at this time. All due medications administered and tolerated well. Finished chocolate ensure. Encouraged pt to drink more fluids. Repositioned for comfort. Needs attended to promptly. Colostomy bag intact and patent with small amount of liquid output. Mid abdominal incision intact and open to air. Safety measures and fall prevention maintained. Continue care as planned.
[2020-06-26 04:34] VITALS: BP 104/62
[2020-06-26] MEDS: METHADONE HCL 10 MG TABLET PO SCH (05:35)
[2020-06-26 08:00] VITALS: BP 116/64
[2020-06-26] MEDS: DRONABINOL 2.5 MG CAPSULE PO SCH ×2 (08:40→16:52)
[2020-06-26] MEDS: PROTEIN SUPPLEMENT (PROSTAT) 30 ML LIQUID PO SCH ×2 (08:40→11:52)
[2020-06-26] MEDS: ALPRAZOLAM 0.25 MG TABLET PO SCH ×2 (08:40→16:52)
[2020-06-26] MEDS: SERTRALINE HCL 50 MG TABLET PO SCH (08:40)
[2020-06-26] MEDS: ENOXAPARIN SODIUM 40 MG/0.4 ML DISP.SYRIN SQ SCH (08:41)
[2020-06-26] MEDS: ENSURE WITH FIBER 237 ML LIQUID (CHOCOLATE) PO SCH ×2 (08:44→13:00)
--- NOTE | 2020-06-26 09:00 | NUR ---
Received patient alert and verbally responsive. Noted with forgetfulness, but able to state name, where he is at and the year. No signs of acute distress on room air. Assessment done as recorded. From the reports, patient has poor appetite and still verbalizes of not wanting to eat anything but Ensure and the gelatin that came with breakfast. The Prostat given as ordered, tolerated well. Oral medications tolerated, no signs of aspiration. Pt with colostomy bag, with BM at this time, soft consistency. Will change bag. Able to use urinal, voiding well. Fall and safety precautions maintained.
--- NOTE | 2020-06-26 16:04 | NUR ---
Report given to Chun NOVAK ([facility]) [phone] [id number] [place] [id number]
[2020-06-26 16:08] VITALS: BP 115/67
--- NOTE | 2020-06-26 16:57 | NUR ---
Pt was picked up by [facility].Report given to Kristian RAMOS. VSS. Medicated with Xanax and Marinol as ordered, prior leaving. Leaving via gurney in stable condition.
== END 2020-06-26 17:05 | DRG 949 ==
PROVIDERS: ADMIT Physical Medicine & Rehabilitation Pain Medicine; ATTEND Physical Medicine & Rehabilitation Pain Medicine
DX: Z48.815 Encounter for surgical aftercare following surgery on the digestive system (principal); K63.1 Perforation of intestine (nontraumatic); K65.8 Other peritonitis; E43 Unspecified severe protein-calorie malnutrition; G92 Toxic encephalopathy; A41.9 Sepsis, unspecified organism; R64 Cachexia; K56.7 Ileus, unspecified; R53.1 Weakness; Z87.442 Personal history of urinary calculi; D64.9 Anemia, unspecified; E87.6 Hypokalemia; F17.200 Nicotine dependence, unspecified, uncomplicated; F32.9 Major depressive disorder, single episode, unspecified; G89.4 Chronic pain syndrome; J44.9 Chronic obstructive pulmonary disease, unspecified; N20.0 Calculus of kidney; Z93.3 Colostomy status; E87.8 Other disorders of electrolyte and fluid balance, not elsewhere classified
CPT/HCPCS: 36415; 70030-TC; 71045; 74018; 83735; 84100; 85025; 87040; 87086; 93005; 93307; A4663; C1758; J1170; J1650; J2405; J2543; J3490; J7040; J7050; J7060; J8999; Q0167

== ENCOUNTER 2020-06-29 12:28 | Inpatient (IN) | payer MEDICARE, OTHER ==
[~2020-06-29] VITALS: Ht 167.6 cm; Wt 42.2 kg
[~2020-06-29 12:28] MED LIST: ENOX40DI SQ; METH10TA2 PO
[2020-06-29] MEDS ORDERED: SERT25TA PO (13:10)
[2020-06-29] MEDS ORDERED: TAMS-3 PO (13:10)
[2020-06-29] MEDS ORDERED: ALPR0.255 PO (13:10)
[2020-06-29] MEDS ORDERED: METH10TA2 PO (13:10)
[2020-06-29] MEDS ORDERED: ENOX30DI SUBCUT (13:10)
[2020-06-29] MEDS ORDERED: ONDA4TAB5 PO (13:10)
[2020-06-29] MEDS ORDERED: MIRT-121 PO (13:10)
[2020-06-29] MEDS ORDERED: DRON10CA5 PO (13:10)
[2020-06-29] MEDS ORDERED: MULT-594 PO (13:10)
[2020-06-29] MEDS ORDERED: ACET-2154 PO (13:10)
--- NOTE | 2020-06-29 13:12 | NUR ---
Pt BIB ambulance from [facility], AO x 4. No acute distress. Pt has colostomy bag, leaking. Colostomy bag changed and provided perineal care and linen change. Tolerated well. Pending MSE by BRANDON.
--- NOTE | 2020-06-29 13:30 | NUR ---
Pt not septic per [facility]IRS criteria.
[2020-06-29] MEDS ORDERED: PIPERACILLIN SODIUM/TAZOBACTAM 3.375 G in IV DEXTROSE 5% 50 ML IV ONE (14:00)
[2020-06-29] MEDS ORDERED: IV NS 1000 ML 1,000 ML IV ONE (14:00)
[2020-06-29] MEDS ORDERED: ACETAMINOPHEN 650 MG/20.3 ML LIQUID UDC PO ONE (14:00)
[2020-06-29 14:01] LABS: BASOPHILS # (AUTO) 0.1 K/uL (0.0-8.0); BASOPHILS % (AUTO) 1.2 % (0.0-2.0); EOSINOPHILS # (AUTO) 0.1 K/uL (0.0-0.7); EOSINOPHILS % (AUTO) 0.7 % (0.0-7.0); HEMATOCRIT 28.6 % (36.7-47.1); HEMOGLOBIN 9.8 g/dL (12.5-16.3); LYMPHOCYTES # (AUTO) 1.1 K/uL (20.0-40.0); LYMPHOCYTES % (AUTO) 10.8 % (20.5-51.5); MEAN CORPUSCULAR HEMOGLOBIN 29.1 uug (23.8-33.4); MEAN CORPUSCULAR HGB CONC 34 g/dL (32.5-36.3); MEAN CORPUSCULAR VOLUME 85.2 fL (73.0-96.2); MONOCYTES # (AUTO) 1.2 K/uL (2.0-10.0); NEUTROPHILS # (AUTO) 8.1 K/uL (1.8-8.9); NEUTROPHILS % (AUTO) 76.3 % (38.5-71.5); PLATELET COUNT (AUTO) 696 K/uL (152-348); RED BLOOD CELL COUNT(AUTO) 3.36 MIL/uL (4.06-5.63); WHITE BLOOD COUNT (AUTO) 10.6 K/uL (3.6-10.2)
[2020-06-29 14:10] LABS: CREATININE 0.7 mg/dL (0.6-1.3); POTASSIUM 3.5 mmol/L (3.5-5.1)
[2020-06-29] MEDS ORDERED: ACETAMINOPHEN 650 MG/20.3 ML LIQUID UDC ONE (14:10)
[2020-06-29] MEDS ORDERED: PIPERACILLIN/TAZOBACTAM/D5W 50 ML IV ONE (14:10)
[2020-06-29 14:14] LABS: BILIRUBIN,DIRECT 0.3 mg/dL (0.0-0.2); BILIRUBIN,TOTAL 0.4 mg/dL (0.2-1.0)
[2020-06-29 15:15] LABS: *BILIRUBIN,URIN NEGATIVE (NEGATIVE); *BLOOD, URINE 2+ (NEGATIVE); *CLARITY,URINE SLIGHTLY CLOUDY (CLEAR); *COLOR,URINE DARK YELLOW (YELLOW); *KETONES,URINE NEGATIVE (NEGATIVE); LEUKOCYTE ESTERASE ,URINE NEGATIVE (NEGATIVE); NITRITE, URINE NEGATIVE (NEGATIVE); PH,URINE 6.5 (5.0-8.0); UGLUCOSE NEGATIVE (NEGATIVE)
--- NOTE | 2020-06-29 15:27 | NUR ---
PAGED FOR DR HUITRON FOR PENDING ADMISSION.
[2020-06-29] MEDS ORDERED: AZITHROMYCIN 250 MG TABLET PO ONE (15:30)
[2020-06-29] MEDS ORDERED: VANCOMYCIN 1G/D5W 200 ML PIGGYBACK IV ONE (15:30)
[2020-06-29 15:33] LABS: RBC,URINE 80-100 /HPF (0-3)
[2020-06-29 15:34] LABS: SQUAMOUS EPITHELIAL CELL,UR FEW /HPF (NONE SEEN)
[2020-06-29 15:35] LABS: BACTERIA,URINE MODERATE /HPF (NONE SEEN)
[2020-06-29] MEDS ORDERED: AZITHROMYCIN 250 MG TABLET ONE (15:36)
[2020-06-29] MEDS ORDERED: VANCOMYCIN IV 200 ML ONE (15:36)
--- NOTE | 2020-06-29 15:40 | NUR ---
CALLED TO GIVE REPORT FOR PENDING ADMISSION. RN NOT READY AT THIS TIME. STATES WILL CALL BACK FOR REPORT.
--- NOTE | 2020-06-29 16:16 | NUR ---
report given to Adilene NOVAK
--- NOTE | 2020-06-29 17:00 | NUR ---
Report received from KISHORE Holman.
[2020-06-29 17:05] VITALS: BP 121/79
--- NOTE | 2020-06-29 17:07 | NUR ---
TRANSPORTED TO ROOM 316
--- NOTE | 2020-06-29 17:14 | NUR ---
Pt left in stable condition via tarsha, belongings with patient, list signed by pt. Pt is admitted to Tele under Dr. Mayen, Dx: PNA. Warm handoff to Adilene NOVAK.
[2020-06-29] MEDS ORDERED: ONDANSETRON 4 MG/2 ML VIAL IV PRN (17:30)
--- NOTE | 2020-06-29 17:30 | NUR ---
Admitted this 69 year old male to the Telemetry unit from the ER. Pt in no acute distress, no SOB, pt denies pain at this time. VS: BP 121/79, HR 80, O2 99% RA, Temp 97.7, R 18. NSR on tele monitor. Pt A&Ox3, alert to self, place, situation, but did not know date at this time. Pt able to make needs known. Pt participated in assessment process, receptive to admission questions. Skin check completed, photos taken for chart. Belongings inventoried. Dr. Mayen aware of admission, medications reconciled. Pt oriented to unit and assigned room, educated water conservationist light usage, pt verbalized understanding. Call light and belongings within reach. Safety measures in place. Continue to monitor.
[2020-06-29] MEDS: ALPRAZOLAM 0.25 MG TABLET PO SCH (18:01)
[2020-06-29] MEDS: MIRTAZAPINE 15 MG TABLET PO SCH (18:01)
--- NOTE | 2020-06-29 19:30 | NUR ---
Received patient lying in bed. AAOx4. In no acute distress. Denies any pain or SOB. No coughing noted at this time. IV site on left FA intact and patent. NSR on tele at 70/min. COVID precaution observed. Safety measure initiated and call michael within reached.
[2020-06-29 20:03] VITALS: BP 110/78
[2020-06-29] MEDS: TAMSULOSIN HCL 0.4 MG CAP.SR.24H PO SCH (21:06)
[2020-06-29] MEDS ORDERED: PIPERACILLIN SODIUM/TAZOBACTAM 3.375 G in IV DEXTROSE 5% 50 ML IV SCH (22:00)
--- NOTE | 2020-06-29 22:09 | NUR ---
Dr. Landeros into visit.
[2020-06-29] MEDS ORDERED: MEROPENEM 500 MG in IV NORMAL SALINE 50 ML IV SCH ×2 (22:30→23:00)
[2020-06-29] MEDS ORDERED: MEROPENEM 500MG/NS 50ML PB ***ER PYXIS ONLY IV ONE (23:06)
[2020-06-30 00:12] VITALS: BP 108/70
[2020-06-30 04:21] VITALS: BP 110/70
[2020-06-30] MEDS: ACETAMINOPHEN 325 MG TABLET PO PRN (06:03)
[2020-06-30] MEDS: PANTOPRAZOLE SODIUM 40 MG TABLET.DR PO SCH (06:03)
--- NOTE | 2020-06-30 06:17 | NUR ---
AAOx4. In no acute distress. No complain of pain or SOB. No coughing noted. IV site on left FA intact and patent. No adverse reaction noted from IV ABX. NSR on tele at 76/min. Colostomy intact. COVID precaution maintained. Safety measure maintained and call michael within reached.
[2020-06-30 06:49] LABS: BASOPHILS # (AUTO) 0.1 K/uL (0.0-8.0); BASOPHILS % (AUTO) 1.5 % (0.0-2.0); EOSINOPHILS # (AUTO) 0.7 K/uL (0.0-0.7); EOSINOPHILS % (AUTO) 7.2 % (0.0-7.0); HEMATOCRIT 27.2 % (36.7-47.1); HEMOGLOBIN 9.5 g/dL (12.5-16.3); LYMPHOCYTES # (AUTO) 0.9 K/uL (20.0-40.0); MEAN CORPUSCULAR HGB CONC 35 g/dL (32.5-36.3); MEAN CORPUSCULAR VOLUME 85.9 fL (73.0-96.2); MONOCYTES % (AUTO) 10.2 % (0.0-11.0); NEUTROPHILS # (AUTO) 7.1 K/uL (1.8-8.9); NEUTROPHILS % (AUTO) 72.1 % (38.5-71.5); PLATELET COUNT (AUTO) 575 K/uL (152-348); RED BLOOD CELL COUNT(AUTO) 3.17 MIL/uL (4.06-5.63); WHITE BLOOD COUNT (AUTO) 9.9 K/uL (3.6-10.2)
[2020-06-30 07:06] LABS: ALANINE AMINOTRANSFERASE 29 U/L (16-63); ALKALINE PHOSPHATASE 118 U/L (50-136); ASPARTATE AMINOTRANSFERASE 28 U/L (15-37); BILIRUBIN,TOTAL 0.4 mg/dL (0.2-1.0); CARBON DIOXIDE 27 mmol/L (21-32); CHLORIDE 105 mmol/L (98-107); CREATININE 0.6 mg/dL (0.6-1.3); GLUCOSE 91 mg/dL (74-106); PHOSPHOROUS 3.6 mg/dL (2.5-4.9); POTASSIUM 3.3 mmol/L (3.5-5.1); TOTAL PROTEIN, SERUM 6.2 g/dL (6.4-8.2)
[2020-06-30 07:14] LABS: IRON, SERUM 15 ug/dL (50-175); UREA NITROGEN, BLOOD 13 mg/dL (7-18)
--- NOTE | 2020-06-30 07:30 | NUR ---
Received patient in bed alert times 3-4. No sign of distress noted. Pt is in isolation (PUI) for Covid 19. PCR results are still pending. Patient has LFA 20 gauge and a LLQ colostomy. There is some redness noted on the sacrum and a scab on the left knee. Safety measures are in place. Will continue to monitor.
[2020-06-30] MEDS ORDERED: Medication Not On Formulary EA (Sertraline Hcl (Zoloft) 1 TAB) PO SCH (09:00)
[2020-06-30] MEDS ORDERED: Medication Not On Formulary EA (Multivitamins (Multivitamin) 1 TAB) PO SCH (09:00)
[2020-06-30] MEDS ORDERED: DRONABINOL 2.5 MG PO SCH (09:00)
[2020-06-30] MEDS: DRONABINOL 2.5 MG CAPSULE PO SCH ×2 (09:46→17:19)
[2020-06-30] MEDS: ALPRAZOLAM 0.25 MG TABLET PO SCH ×2 (09:46→17:18)
[2020-06-30] MEDS: MEROPENEM 1 G in IV NORMAL SALINE 100 ML IV SCH ×3 (09:46→23:16)
[2020-06-30] MEDS: MULTIVITAMINS,THERAPEUTIC TABLET PO SCH (09:47)
[2020-06-30] MEDS: METHADONE HCL 10 MG TABLET PO SCH (09:47)
[2020-06-30] MEDS: SERTRALINE HCL 50 MG TABLET PO SCH (09:47)
[2020-06-30] MEDS: ENOXAPARIN SODIUM 30 MG/0.3 ML DISP.SYRIN SUBCUT SCH (09:48)
--- NOTE | 2020-06-30 10:32 | NUR ---
WOUND CARE CONSULT: REVIEWED CHART, NURSING DOCUMENTATION AND PHOTOS WHICH INDICATE DRY SCABS AND SCARS, PRESENT ON ADMISSION. PT HAS COLOSTOMY PER CHART AND RN. RECOMMENDATIONS MADE FOR SKIN PROTECTION. DISCUSSED WITH NURSING STAFF. IN AGREEMENT WITH PLAN OF CARE. Addendum: 06/30/20 at 1039 by WILLIAN OSBORN RN SACRAL SCAR NOTED IN ADMISSION PHOTO. RECOMMENDATIONS MADE FOR SKIN PROTECTION AND DISCUSSED WITH NURSING STAFF.
[2020-06-30] MEDS ORDERED: POTASSIUM CHLORIDE 20 MEQ TAB.PRT.SR PO ONE (10:45)
[2020-06-30 11:36] VITALS: BP 124/87
[2020-06-30] MEDS: VANCOMYCIN IV 750 MG in IV DEXTROSE 5% 250 ML IV SCH (12:02)
[2020-06-30 16:00] VITALS: BP 124/72
[2020-06-30] MEDS: MIRTAZAPINE 15 MG TABLET PO SCH (17:18)
--- NOTE | 2020-06-30 18:32 | NUR ---
Patient left resting in bed, No sign of distress noted. Gave all medications as ordered. Colostomy bag changed. pt is still on isolation. Safety ,measures are in place. Will endorse to the oncoming nurse.
[2020-06-30 20:07] VITALS: BP 138/78
[2020-06-30] MEDS: TAMSULOSIN HCL 0.4 MG CAP.SR.24H PO SCH (20:32)
[2020-07-01 00:45] VITALS: BP 126/75
[2020-07-01] MEDS: ACETAMINOPHEN 325 MG TABLET PO PRN ×2 (03:17→21:44)
[2020-07-01 04:39] VITALS: BP 143/84
--- NOTE | 2020-07-01 06:15 | NUR ---
Patient in bed.on Ra.No s/s of distress noted. Iv on left Fa 20g patent and intact.Due meds given and IV ATb administered as ordered.No a/r noted.patient uses urinal voided well. Colostomy bag in place. Redness noted on sacral area. Wound care provided. Tolerated well. VSs.will endorse to oncoming shift.
[2020-07-01] MEDS: VANCOMYCIN IV 750 MG in IV DEXTROSE 5% 250 ML IV SCH (06:38)
[2020-07-01] MEDS: PANTOPRAZOLE SODIUM 40 MG TABLET.DR PO SCH (06:38)
--- NOTE | 2020-07-01 07:15 | NUR ---
received report, patient awake, HOB elevated, no signs of any pain or discomfort noted at this time. IV patent. colostomy intact. will continue to monitor.
[2020-07-01 07:25] LABS: CREATININE 0.7 mg/dL (0.6-1.3); POTASSIUM 3.7 mmol/L (3.5-5.1)
[2020-07-01] MEDS: MEROPENEM 1 G in IV NORMAL SALINE 100 ML IV SCH ×3 (08:06→23:41)
[2020-07-01 08:34] VITALS: BP 131/68
[2020-07-01] MEDS: ALPRAZOLAM 0.25 MG TABLET PO SCH ×2 (08:50→17:18)
[2020-07-01] MEDS: METHADONE HCL 10 MG TABLET PO SCH (08:50)
[2020-07-01] MEDS: DRONABINOL 2.5 MG CAPSULE PO SCH ×2 (08:50→17:19)
[2020-07-01] MEDS: MULTIVITAMINS,THERAPEUTIC TABLET PO SCH (08:50)
[2020-07-01] MEDS: SERTRALINE HCL 50 MG TABLET PO SCH (08:51)
[2020-07-01] MEDS: ENOXAPARIN SODIUM 30 MG/0.3 ML DISP.SYRIN SUBCUT SCH (08:55)
--- NOTE | 2020-07-01 09:44 | NUR ---
WOUND CARE CONSULT: PT SEEN FOR SKIN ASSESSMENT AND AFTER FURTHER INVESTIGATION/EVALUATION, PT NOTED TO HAVE INTACT DEEP TISSUE INJURY TO SACRUM, PRESENT ON ADMISSION. PT IS VERY THIN AND BONY. COLOSTOMY NOTED TO BE FUNCTIONING AND POUCH IS ADHERING WELL. DIETARY CONSULT PLACED. DISCUSSED SKIN PROTECTION WITH NURSING STAFF. IN AGREEMENT WITH PLAN OF CARE. Addendum: 07/01/20 at 1048 by WILLIAN OSBORN RN Amended: Links added.
[2020-07-01 12:40] VITALS: BP 127/84
[2020-07-01 14:46] VITALS: BP 108/66
[2020-07-01] MEDS: ENSURE ENLIVE (VAN) 240 ML LIQUID PO SCH (17:20)
--- NOTE | 2020-07-01 19:10 | NUR ---
Patient report received from day shift. Patient seen resting in bed. Alert and oriented x 3. Iv on the Left forearm 20g. No reports of shortness of breath at this time. Comfortable on room air. Patient able to use urinal. Unsteady when attempting to walk. Bowel movements were reported to bed formed and hard, new order of colace 100mg bid placed per TALENT DIRECTOR Abril. Safety precautions in place. Bed in low and locked position. Call light within reach.
--- NOTE | 2020-07-01 19:25 | NUR ---
patient in bed awake, HOB elevated, no signs of pain or discomfort noted. IV patent and flushed. will report to oncoming shift.
[2020-07-01 20:25] VITALS: BP 121/79
[2020-07-01] MEDS: DOCUSATE SODIUM 100 MG CAPSULE PO SCH (20:28)
[2020-07-01] MEDS: MIRTAZAPINE 15 MG TABLET PO SCH (20:28)
[2020-07-01] MEDS: TAMSULOSIN HCL 0.4 MG CAP.SR.24H PO SCH (20:28)
[2020-07-02] MEDS: VANCOMYCIN IV 750 MG in IV DEXTROSE 5% 250 ML IV SCH (03:15)
[2020-07-02 04:25] VITALS: BP 111/73
[2020-07-02] MEDS: PANTOPRAZOLE SODIUM 40 MG TABLET.DR PO SCH (06:03)
--- NOTE | 2020-07-02 06:37 | NUR ---
Patient slept well through the night. Alert and oriented x 3. Patient's on Left forearm is patent. Comfortable on room air. No reports of shortness of breath. Patient reported mild generalized pain around 2100. Given Tylenol, patient reported an improvement in pain level. medication given as ordered. Colostomy emptied, stool was brown and formed. Patient able to urinate using the urinal. Bed in low and locked position. Safety precautions in place. Call light with in reach.
[2020-07-02 06:40] LABS: BASOPHILS # (AUTO) 0.1 K/uL (0.0-8.0); BASOPHILS % (AUTO) 0.7 % (0.0-2.0); EOSINOPHILS # (AUTO) 0.4 K/uL (0.0-0.7); EOSINOPHILS % (AUTO) 4.2 % (0.0-7.0); HEMATOCRIT 30.3 % (36.7-47.1); LYMPHOCYTES # (AUTO) 1.7 K/uL (20.0-40.0); LYMPHOCYTES % (AUTO) 17.4 % (20.5-51.5); MEAN CORPUSCULAR HEMOGLOBIN 28.2 uug (23.8-33.4); MEAN CORPUSCULAR HGB CONC 33 g/dL (32.5-36.3); MEAN CORPUSCULAR VOLUME 85.7 fL (73.0-96.2); MONOCYTES # (AUTO) 0.9 K/uL (2.0-10.0); MONOCYTES % (AUTO) 9.4 % (0.0-11.0); NEUTROPHILS # (AUTO) 6.8 K/uL (1.8-8.9); NEUTROPHILS % (AUTO) 68.3 % (38.5-71.5); PLATELET COUNT (AUTO) 505 K/uL (152-348); RED BLOOD CELL COUNT(AUTO) 3.54 MIL/uL (4.06-5.63); WHITE BLOOD COUNT (AUTO) 9.9 K/uL (3.6-10.2)
[2020-07-02 06:52] LABS: CARBON DIOXIDE 30 mmol/L (21-32); CHLORIDE 103 mmol/L (98-107); CREATININE 0.6 mg/dL (0.6-1.3); GLUCOSE 91 mg/dL (74-106)
[2020-07-02 07:18] LABS: UREA NITROGEN, BLOOD 14 mg/dL (7-18)
[2020-07-02] MEDS: MEROPENEM 1 G in IV NORMAL SALINE 100 ML IV SCH ×3 (08:54→23:46)
[2020-07-02] MEDS: DOCUSATE SODIUM 100 MG CAPSULE PO SCH ×2 (08:55→16:17)
[2020-07-02] MEDS: METHADONE HCL 10 MG TABLET PO SCH (08:55)
[2020-07-02] MEDS: ALPRAZOLAM 0.25 MG TABLET PO SCH ×2 (08:55→16:17)
[2020-07-02] MEDS: SERTRALINE HCL 50 MG TABLET PO SCH (08:55)
[2020-07-02] MEDS: MULTIVITAMINS,THERAPEUTIC TABLET PO SCH (08:55)
[2020-07-02] MEDS: DRONABINOL 2.5 MG CAPSULE PO SCH ×2 (08:55→16:17)
[2020-07-02] MEDS: ENSURE ENLIVE (VAN) 240 ML LIQUID PO SCH ×3 (08:56→16:17)
[2020-07-02] MEDS: ENOXAPARIN SODIUM 30 MG/0.3 ML DISP.SYRIN SUBCUT SCH (09:03)
[2020-07-02 11:53] VITALS: BP 122/78
[2020-07-02] MEDS: VANCOMYCIN IV 500 MG in IV DEXTROSE 5% 100 ML IV SCH (14:00)
[2020-07-02 15:59] VITALS: BP 109/70
--- NOTE | 2020-07-02 18:07 | NUR ---
EOSS: No significant acute changes during this shift. No changes in LOC, A/Ox3 verbally responsive and able to make needs known. All due medications given as ordered and tolerated well. Noted with poor PO intake but pt. consuming Ensure. Colostomy with loose stool output. Remain on IV abx, no ASE noted. All pt. needs attended and met. Safety measures in place. Call light and all frequently used items within pt. reach. Will endorse to oncoming shift.
[2020-07-02] MEDS: ACETAMINOPHEN 325 MG TABLET PO PRN (20:05)
[2020-07-02] MEDS: TAMSULOSIN HCL 0.4 MG CAP.SR.24H PO SCH (20:05)
[2020-07-02] MEDS: MIRTAZAPINE 15 MG TABLET PO SCH (20:05)
--- NOTE | 2020-07-02 20:17 | NUR ---
Received patient in resting in bed. No s/s of acute distress noted at this time. AAOx3, forgetful at times. On RA denies SOB. C/o abdominal pain, will administer pain medication per orders. Left FA IV patent and intact. Call light within reach. Safety measures in place, bed alarm on and locked.
[2020-07-02 20:35] VITALS: BP 105/66
[2020-07-02 20:36] VITALS: BP 105/66
[2020-07-03] MEDS: VANCOMYCIN IV 500 MG in IV DEXTROSE 5% 100 ML IV SCH (03:03)
[2020-07-03 04:40] VITALS: BP 108/67
[2020-07-03] MEDS: PANTOPRAZOLE SODIUM 40 MG TABLET.DR PO SCH (06:20)
[2020-07-03] MEDS: ACETAMINOPHEN 325 MG TABLET PO PRN ×2 (06:20→22:30)
[2020-07-03] MEDS: MULTIVITAMINS,THERAPEUTIC TABLET PO SCH (07:59)
[2020-07-03] MEDS: DOCUSATE SODIUM 100 MG CAPSULE PO SCH ×2 (07:59→17:09)
[2020-07-03] MEDS: METHADONE HCL 10 MG TABLET PO SCH (07:59)
[2020-07-03] MEDS: DRONABINOL 2.5 MG CAPSULE PO SCH ×2 (07:59→17:09)
[2020-07-03] MEDS: ALPRAZOLAM 0.25 MG TABLET PO SCH ×2 (07:59→17:09)
[2020-07-03] MEDS: MEROPENEM 1 G in IV NORMAL SALINE 100 ML IV SCH ×2 (08:00→15:50)
[2020-07-03] MEDS: SERTRALINE HCL 50 MG TABLET PO SCH (08:00)
[2020-07-03] MEDS: ENOXAPARIN SODIUM 30 MG/0.3 ML DISP.SYRIN SUBCUT SCH (08:01)
[2020-07-03] MEDS: ENSURE ENLIVE (VAN) 240 ML LIQUID PO SCH ×3 (08:01→17:09)
[2020-07-03 11:43] VITALS: BP 118/55
[2020-07-03 16:00] VITALS: BP 101/67
[2020-07-03] MEDS: VANCOMYCIN IV 750 MG in IV DEXTROSE 5% 250 ML IV SCH (18:30)
--- NOTE | 2020-07-03 20:00 | NUR ---
Patient alert oriented, no complain of sob, nor chest pain. Patient has colostomy bag, intact, continent of bladder, use urinal for bladder eliminations. Patient has no coughing noted, cont to monitor.
[2020-07-03 20:27] VITALS: BP 98/56
[2020-07-03] MEDS: TAMSULOSIN HCL 0.4 MG CAP.SR.24H PO SCH (21:01)
[2020-07-03] MEDS: MIRTAZAPINE 15 MG TABLET PO SCH (21:01)
[2020-07-04] MEDS: MEROPENEM 1 G in IV NORMAL SALINE 100 ML IV SCH ×3 (00:15→15:01)
[2020-07-04 04:30] VITALS: BP 96/61
[2020-07-04] MEDS: VANCOMYCIN IV 750 MG in IV DEXTROSE 5% 250 ML IV SCH ×2 (05:15→17:43)
--- NOTE | 2020-07-04 06:53 | NUR ---
Patient alert oriented, no sob no chest pain, no complain of pain. V/s wnl, Patient has no cough no congestion noted, uses urinal for bladder eliminations, cont to monitor.
[2020-07-04] MEDS: PANTOPRAZOLE SODIUM 40 MG TABLET.DR PO SCH (07:06)
[2020-07-04 07:07] LABS: CREATININE 0.7 mg/dL (0.6-1.3); POTASSIUM 3.9 mmol/L (3.5-5.1)
[2020-07-04] MEDS: MULTIVITAMINS,THERAPEUTIC TABLET PO SCH (08:08)
[2020-07-04] MEDS: DOCUSATE SODIUM 100 MG CAPSULE PO SCH ×2 (08:08→16:08)
[2020-07-04] MEDS: ALPRAZOLAM 0.25 MG TABLET PO SCH ×2 (08:08→16:08)
[2020-07-04] MEDS: SERTRALINE HCL 50 MG TABLET PO SCH (08:09)
[2020-07-04] MEDS: METHADONE HCL 10 MG TABLET PO SCH (08:09)
[2020-07-04] MEDS: DRONABINOL 2.5 MG CAPSULE PO SCH ×2 (08:10→16:08)
[2020-07-04] MEDS: ENOXAPARIN SODIUM 30 MG/0.3 ML DISP.SYRIN SUBCUT SCH (08:11)
[2020-07-04] MEDS: ENSURE ENLIVE (VAN) 240 ML LIQUID PO SCH ×3 (08:11→16:08)
[2020-07-04 12:00] VITALS: BP 105/59
--- NOTE | 2020-07-04 14:23 | NUR ---
pt complaining that he feels very anxious and is asking for medication to help relax him. pt on Xanax 0.25mg BID but next dose isn't due until 5pm. pt keeps calling and asking for medicine. WARDROBE COORDINATOR Abril Hurst in the unit and informed. per WARDROBE COORDINATOR, okay to give pt one dose of Xanax 0.25mg now and still give the 5pm dose later.
[2020-07-04] MEDS ORDERED: ALPRAZOLAM 0.25 MG TABLET PO ONE (14:30)
[2020-07-04] MEDS ORDERED: MULT-24 PO (14:35)
[2020-07-04] MEDS ORDERED: Lactose-Free Food PO (14:35)
[2020-07-04] MEDS ORDERED: PANT40TA2 PO (14:35)
[2020-07-04] MEDS ORDERED: DOCU100C36 PO (14:35)
[2020-07-04] MEDS ORDERED: CALC-11 PO (14:35)
[2020-07-04] MEDS ORDERED: MIRT-93 PO (14:35)
[2020-07-04] MEDS: ACETAMINOPHEN 325 MG TABLET PO PRN ×2 (15:01→20:39)
[2020-07-04 15:37] VITALS: BP 92/60
--- NOTE | 2020-07-04 18:42 | NUR ---
pt in bed awake. pt on room air. pt hs colostomy bag with brown, soft stool. colostomy bag changed, no s/s infection/irritation noted. pt uses urinal to void. pt complaining of pain, pt was given PRN tylenol at 3pm, next dose not due until 9pm. pt stated, "i want something stronger". left message for DIRECTOR STRATEGIC PLANNING Abril Hurst. pending any new orders. if no response by 7pm, will endorse to next shift to F/U. pt
[2020-07-04 20:00] VITALS: BP 108/55
[2020-07-04] MEDS: TAMSULOSIN HCL 0.4 MG CAP.SR.24H PO SCH (20:39)
[2020-07-04] MEDS: MIRTAZAPINE 15 MG TABLET PO SCH (20:39)
[2020-07-05] MEDS: MEROPENEM 1 G in IV NORMAL SALINE 100 ML IV SCH ×2 (00:19→08:18)
[2020-07-05 04:00] VITALS: BP 130/72
[2020-07-05] MEDS: VANCOMYCIN IV 750 MG in IV DEXTROSE 5% 250 ML IV SCH (05:21)
[2020-07-05] MEDS: ACETAMINOPHEN 325 MG TABLET PO PRN ×3 (06:25→21:14)
[2020-07-05] MEDS: PANTOPRAZOLE SODIUM 40 MG TABLET.DR PO SCH (06:25)
[2020-07-05 06:40] LABS: CREATININE 0.7 mg/dL (0.6-1.3); POTASSIUM 4.6 mmol/L (3.5-5.1)
--- NOTE | 2020-07-05 06:56 | NUR ---
Patient alert oriented, no sob no chest pain, Patient given tylenol per request for abdominal pain. Patient was kept clean dry and comfortable, colostomy bag intact, with small amount of bm noted, kept comfortable. cont to monitor.
--- NOTE | 2020-07-05 07:30 | NUR ---
pt a/ox4 c/o weakness, on room air, no signs of distress, reports pain 10/10, medication given as ordered. pt on fall precautions, bed low and locked, call light within reach, pt has urinal at bedside, BM via colostomy. IV on left hand 22g. will continue with plan of care.
[2020-07-05] MEDS: DOCUSATE SODIUM 100 MG CAPSULE PO SCH ×2 (08:18→17:05)
[2020-07-05] MEDS: MULTIVITAMINS,THERAPEUTIC TABLET PO SCH (08:18)
[2020-07-05] MEDS: METHADONE HCL 10 MG TABLET PO SCH (08:19)
[2020-07-05] MEDS: ENSURE ENLIVE (VAN) 240 ML LIQUID PO SCH ×3 (08:20→17:05)
[2020-07-05] MEDS: CALCIUM CARB/VITAMIN D 600-400 MG TABLET PO SCH (08:21)
[2020-07-05] MEDS: SERTRALINE HCL 50 MG TABLET PO SCH (08:21)
[2020-07-05] MEDS: DRONABINOL 2.5 MG CAPSULE PO SCH ×2 (08:21→17:04)
[2020-07-05] MEDS: ALPRAZOLAM 0.25 MG TABLET PO SCH ×2 (08:21→17:04)
[2020-07-05] MEDS: ENOXAPARIN SODIUM 30 MG/0.3 ML DISP.SYRIN SUBCUT SCH (08:33)
[2020-07-05 16:37] VITALS: BP 101/60
[2020-07-05 20:30] VITALS: BP 103/67
[2020-07-05] MEDS: MIRTAZAPINE 15 MG TABLET PO SCH (21:13)
[2020-07-05] MEDS: TAMSULOSIN HCL 0.4 MG CAP.SR.24H PO SCH (21:13)
--- NOTE | 2020-07-05 22:32 | NUR ---
Received patient resting in bed, AAOx4. No s/s of acute distress noted at this time. Pt on RA denies SOB and CP. Left abdomen ostomy pouch intact, stoma pink and moist. Encouraged patient with assistance in self care. Bowel sounds present. C/o of generalized pain, administered Tylenol per order and effective. Safety measures in place, bed locked in lowest position with alarm on.
[2020-07-06 04:30] VITALS: BP 90/61
[2020-07-06] MEDS: PANTOPRAZOLE SODIUM 40 MG TABLET.DR PO SCH (06:29)
[2020-07-06 06:55] LABS: CARBON DIOXIDE 32 mmol/L (21-32); CHLORIDE 101 mmol/L (98-107); CREATININE 0.6 mg/dL (0.6-1.3); GLUCOSE 108 mg/dL (74-106); POTASSIUM 4.4 mmol/L (3.5-5.1); UREA NITROGEN, BLOOD 27 mg/dL (7-18)
--- NOTE | 2020-07-06 07:37 | NUR ---
Received patient on bed. on room air. no signs of acute distress. bed locked and in low position. call light within reach. will continue to monitor.
[2020-07-06] MEDS: SERTRALINE HCL 50 MG TABLET PO SCH (08:25)
[2020-07-06] MEDS: ALPRAZOLAM 0.25 MG TABLET PO SCH ×2 (08:25→16:17)
[2020-07-06] MEDS: CALCIUM CARB/VITAMIN D 600-400 MG TABLET PO SCH (08:25)
[2020-07-06] MEDS: DOCUSATE SODIUM 100 MG CAPSULE PO SCH ×2 (08:25→16:17)
[2020-07-06] MEDS: MULTIVITAMINS,THERAPEUTIC TABLET PO SCH (08:25)
[2020-07-06] MEDS: DRONABINOL 2.5 MG CAPSULE PO SCH ×2 (08:26→16:17)
[2020-07-06] MEDS: ENSURE ENLIVE (VAN) 240 ML LIQUID PO SCH ×3 (08:29→17:40)
[2020-07-06] MEDS: ENOXAPARIN SODIUM 30 MG/0.3 ML DISP.SYRIN SUBCUT SCH (08:36)
[2020-07-06] MEDS: METHADONE HCL 10 MG TABLET PO SCH (09:00)
[2020-07-06] MEDS ORDERED: IV NORMAL SALINE 500 ML BAG IV ONE ×2 (10:15→11:30)
[2020-07-06] MEDS ORDERED: IV NORMAL SALINE 500 ML IV ONE (11:30)
[2020-07-06 11:34] VITALS: BP 99/59
[2020-07-06 15:42] VITALS: BP 98/64
--- NOTE | 2020-07-06 19:02 | NUR ---
Patient asleep on bed. Patient AOx4. On room air. no signs of acute distress. 0900am dose of Methadone held, BP 93/57. [facility], SUMMER CAMP COUNSELOR aware. Patient participated with Physical Therapy. Poor appetite despite encouragement to increase PO intake. Will endorse to incoming shift for continuity of care.
[2020-07-06] MEDS ORDERED: IV NS 1000 ML 1,000 ML IV ONE (19:45)
[2020-07-06 20:13] VITALS: BP 118/63
--- NOTE | 2020-07-06 20:15 | NUR ---
Received patient awake in bed. a/o x4. Received order for patient to received ns @ 100cc/hr x2 bags. 1st bag started and infusing well to left ac #20 gauge. vss. Call light in reach, all needs attended. Will continue to monitor and assess.
[2020-07-06] MEDS: TAMSULOSIN HCL 0.4 MG CAP.SR.24H PO SCH (20:16)
[2020-07-06] MEDS: MIRTAZAPINE 15 MG TABLET PO SCH (20:16)
[2020-07-06] MEDS: ACETAMINOPHEN 325 MG TABLET PO PRN (21:29)
[2020-07-07 04:46] VITALS: BP 98/67
[2020-07-07] MEDS ORDERED: IV NS 1000 ML 1,000 ML IV ONE (05:15)
--- NOTE | 2020-07-07 05:45 | NUR ---
Patient asleep in bed. 2nd bag of NS infusing as ordered. Patient slept well throughout the night. vs wnl. Bed alarm on. Call light in reach. All needs attended. Will continue to monitor and assess.
[2020-07-07] MEDS: PANTOPRAZOLE SODIUM 40 MG TABLET.DR PO SCH (06:03)
--- NOTE | 2020-07-07 07:30 | NUR ---
Received patient awake in bed. AOx4. On room air. with left AC 20gauge IV access with NS running at 100ml/hr. No signs of acute distress. Bed locked and in low position. Will continue to monitor.
[2020-07-07] MEDS: ACETAMINOPHEN 325 MG TABLET PO PRN (07:44)
[2020-07-07] MEDS: ALPRAZOLAM 0.25 MG TABLET PO SCH ×2 (08:35→16:14)
[2020-07-07] MEDS: CALCIUM CARB/VITAMIN D 600-400 MG TABLET PO SCH (08:35)
[2020-07-07] MEDS: SERTRALINE HCL 50 MG TABLET PO SCH (08:35)
[2020-07-07] MEDS: MULTIVITAMINS,THERAPEUTIC TABLET PO SCH (08:35)
[2020-07-07] MEDS: ENSURE ENLIVE (VAN) 240 ML LIQUID PO SCH ×3 (08:37→16:18)
[2020-07-07] MEDS: METHADONE HCL 10 MG TABLET PO SCH (08:37)
[2020-07-07] MEDS: DOCUSATE SODIUM 100 MG CAPSULE PO SCH ×2 (08:42→16:18)
[2020-07-07] MEDS: ENOXAPARIN SODIUM 30 MG/0.3 ML DISP.SYRIN SUBCUT SCH (08:44)
[2020-07-07] MEDS: DRONABINOL 2.5 MG CAPSULE PO SCH ×2 (09:32→16:14)
[2020-07-07 11:39] VITALS: BP 105/65
[2020-07-07 15:38] VITALS: BP 104/57
--- NOTE | 2020-07-07 19:21 | NUR ---
Discharged patient to [facility]. Patient awake, AOx3. on room air. no signs of acute distress. Colostomy care done. Discharge instructions given and discharge documents signed by patient. Belongings accounted for and belongings list signed. IV access removed. ID band removed. Report given to KISHORE Zayas of [facility]. Patient left unit via [facility].
== END 2020-07-07 19:15 | DRG 871 ==
LOC: ER 12:28 → TELE3 16:42 → MEDSURG3 07-01 08:20
PROVIDERS: ADMIT Internal Medicine; ATTEND Nurse Practitioner Acute Care
DX: A41.9 Sepsis, unspecified organism (principal); J15.9 Unspecified bacterial pneumonia; E43 Unspecified severe protein-calorie malnutrition; G92 Toxic encephalopathy; J44.0 Chronic obstructive pulmonary disease with (acute) lower respiratory infection; Z68.1 Body mass index [BMI] 19.9 or less, adult; F33.2 Major depressive disorder, recurrent severe without psychotic features; I31.3 Pericardial effusion (noninflammatory); N39.0 Urinary tract infection, site not specified; R64 Cachexia; G89.4 Chronic pain syndrome; Z20.822 Contact with and (suspected) exposure to COVID-19; D64.9 Anemia, unspecified; R62.7 Adult failure to thrive; R94.31 Abnormal electrocardiogram [ECG] [EKG]; E88.09 Other disorders of plasma-protein metabolism, not elsewhere classified; F17.200 Nicotine dependence, unspecified, uncomplicated; Z87.442 Personal history of urinary calculi; B95.2 Enterococcus as the cause of diseases classified elsewhere; Z79.891 Long term (current) use of opiate analgesic; Z93.3 Colostomy status; Z90.49 Acquired absence of other specified parts of digestive tract; N20.0 Calculus of kidney; R53.1 Weakness
CPT/HCPCS: 36415; 70030-TC; 71045; 83550; 83605; 83735; 84100; 84153; 85025; 85730; 87040; 87070; 87086; 87400; 93005; A4663; G0378; J1650; J2185; J2543; J3370; J3490; J7030; J7040; J7060; Q0144; Q0167; U0003

== ENCOUNTER 2020-09-21 10:30 | Inpatient (IN) | payer MEDICARE, OTHER ==
[~2020-09-21] VITALS: Ht 167.6 cm; Wt 33.6 kg
[~2020-09-21 10:30] MED LIST changes: +ACET-2154 PO; +ALPR0.255 PO; +CALC-11 PO; +DOCU100C36 PO; +DRON10CA5 PO; +ENOX30DI SUBCUT; -ENOX40DI SQ; +Lactose-Free Food PO; +MIRT-121 PO; +MIRT-93 PO; +MULT-24 PO; +MULT-594 PO; +ONDA4TAB5 PO; +PANT40TA2 PO; +SERT25TA PO; +TAMS-3 PO
[2020-09-21] MEDS ORDERED: IV NORMAL SALINE 500 ML IV ONE ×2 (11:00→12:30)
--- NOTE | 2020-09-21 11:11 | NUR ---
MED RECON DONE WITH PATIENT'S HELP BEST HE CAN RECALL.
[2020-09-21 11:20] LABS: MEAN CORPUSCULAR HEMOGLOBIN 26.7 uug (23.8-33.4); MEAN CORPUSCULAR VOLUME 82.9 fL (73.0-96.2); PLATELET COUNT (AUTO) 152 K/uL (152-348)
[2020-09-21 11:27] LABS: CREATININE 1.5 mg/dL (0.6-1.3); POTASSIUM 3.2 mmol/L (3.5-5.1)
[2020-09-21 11:37] LABS: BILIRUBIN,DIRECT 0.4 mg/dL (0.0-0.2); BILIRUBIN,TOTAL 0.7 mg/dL (0.2-1.0); TOTAL PROTEIN, SERUM 6.9 g/dL (6.4-8.2)
[2020-09-21] MEDS ORDERED: POTASSIUM CHLORIDE 20 MEQ TAB.PRT.SR PO ONE (12:30)
[2020-09-21] MEDS ORDERED: MAGNESIUM SULFATE/D5W 100 ML IV SCH (12:30)
--- NOTE | 2020-09-21 19:30 | NUR ---
Recieved report from KISHORE Hahn. Pt is resting in bed. No signs of distress, vss.
[2020-09-21] MEDS ORDERED: POTASSIUM CHLORIDE 20 MEQ TAB.PRT.SR ONE (19:52)
[2020-09-21] MEDS ORDERED: MAGNESIUM SULFATE/D5W 100 ML ONE (19:52)
--- NOTE | 2020-09-21 21:46 | NUR ---
Gave report to KISHORE Aguila. Pt. will be going to rm [id number].
[2020-09-21 22:44] LABS: *BILIRUBIN,URIN 1+ (NEGATIVE); *BLOOD, URINE 1+ (NEGATIVE); *COLOR,URINE YELLOW (YELLOW); *KETONES,URINE 1+ (NEGATIVE); *UROBILINOGEN,URINE 0.2 E.U./dl (NORMAL); LEUKOCYTE ESTERASE ,URINE NEGATIVE (NEGATIVE); NITRITE, URINE NEGATIVE (NEGATIVE); UGLUCOSE NEGATIVE (NEGATIVE)
[2020-09-21 22:54] LABS: *CLARITY,URINE HAZY (CLEAR)
[2020-09-21 23:04] LABS: BACTERIA,URINE MODERATE /HPF (NONE SEEN); SQUAMOUS EPITHELIAL CELL,UR MODERATE /HPF (NONE SEEN)
[2020-09-21] MEDS ORDERED: ENOXAPARIN SODIUM 40 MG/0.4 ML DISP.SYRIN SQ SCH (23:15)
[2020-09-21] MEDS ORDERED: Z GUARD REMEDY PASTE 57 GM TUBE TOP PRN (23:15)
[2020-09-21] MEDS ORDERED: ONDANSETRON 4 MG/2 ML VIAL IV PRN (23:15)
[2020-09-21] MEDS ORDERED: CEFTRIAXONE 1 G in IV DEXTROSE 5% 50 ML IV SCH (23:15)
[2020-09-21] MEDS ORDERED: BUMETANIDE 1 MG/4 ML VIAL IV SCH (23:15)
[2020-09-21 23:20] VITALS: BP 130/82
[2020-09-21] MEDS: IPRATROPIUM BROMIDE 0.5 MG/2.5 ML NEBU NEB SCH (23:58)
[2020-09-21] MEDS: ALBUTEROL SULFATE 2.5 MG/3 ML NEBU NEB SCH (23:59)
[2020-09-22] MEDS: IPRATROPIUM BROMIDE 0.5 MG/2.5 ML NEBU NEB SCH ×7 (03:30→23:01)
[2020-09-22] MEDS: ALBUTEROL SULFATE 2.5 MG/3 ML NEBU NEB SCH ×7 (03:30→23:01)
[2020-09-22 04:00] VITALS: BP 140/91
[2020-09-22] MEDS: methylPREDNISolone SOD SUCC 40 MG/ML VIAL IV SCH ×3 (06:00→21:12)
--- NOTE | 2020-09-22 07:00 | NUR ---
SHIFT NOTES; RECEIVED FROM ER 70 Y/O MALE WITH A DX OF FAILURE TO THRIVE PT IS ALERT AND ORIENTED X3 PT HAD IV 22G RFA PULLED IT OUT. PT VOID PER URINAL AMD LT UPPER COLOSTOMY. PT WAS WEIGHT THIS MORNING HAS A LT UPPER COLOSTOMY DRAINING WELL NO SIGNS OF DISTRESS NOTED. WILL ENDORSE TO AM NURSE.
[2020-09-22 07:56] LABS: MEAN CORPUSCULAR VOLUME 83.6 fL (73.0-96.2); PLATELET COUNT (AUTO) 142 K/uL (152-348)
[2020-09-22 08:08] LABS: BILIRUBIN,TOTAL 0.7 mg/dL (0.2-1.0); CREATININE 1.1 mg/dL (0.6-1.3); MAGNESIUM 2.3 mg/dL (1.8-2.4); PHOSPHOROUS 1.9 mg/dL (2.5-4.9); POTASSIUM 3.5 mmol/L (3.5-5.1); TOTAL PROTEIN, SERUM 6.2 g/dL (6.4-8.2)
[2020-09-22] MEDS: MULTIVITAMINS,THERAPEUTIC TABLET PO SCH (08:22)
[2020-09-22] MEDS: ALPRAZOLAM 0.25 MG TABLET PO SCH ×2 (08:22→17:05)
[2020-09-22] MEDS: SERTRALINE HCL 50 MG TABLET PO SCH (08:22)
[2020-09-22] MEDS: PANTOPRAZOLE SODIUM 40 MG TABLET.DR PO SCH (08:25)
[2020-09-22 08:46] LABS: THYROID STIMULATING HORMONE 4.861 mIU/mL (0.358-3.740)
[2020-09-22] MEDS ORDERED: MULTIVITAMINS 5 ML LIQUID UDC NG SCH (09:00)
[2020-09-22] MEDS ORDERED: METHADONE HCL 10 MG TABLET PO SCH (09:00)
[2020-09-22] MEDS: ENOXAPARIN SODIUM 30 MG/0.3 ML DISP.SYRIN SUBCUT SCH (09:00)
[2020-09-22] MEDS: DRONABINOL 2.5 MG CAPSULE PO SCH ×2 (10:42→17:04)
[2020-09-22] MEDS ORDERED: IV NORMAL SALINE 250 ML IV ONE (11:30)
[2020-09-22] MEDS ORDERED: IOHEXOL 300MG/ML 100 ML INFUS..BTL ONE (11:30)
[2020-09-22] MEDS ORDERED: SWABABLE VALVE TRANSFER SET EA MC ONE (11:30)
[2020-09-22 11:34] VITALS: BP 127/90
[2020-09-22] MEDS: CEFTRIAXONE 1 G in IV DEXTROSE 5% 50 ML IV SCH (14:08)
[2020-09-22 15:17] VITALS: BP 127/52
[2020-09-22] MEDS ORDERED: MIRTAZAPINE 15 MG TABLET PO SCH (18:00)
[2020-09-22 19:42] LABS: *BILIRUBIN,URIN NEGATIVE (NEGATIVE); *BLOOD, URINE 1+ (NEGATIVE); *COLOR,URINE YELLOW (YELLOW); *KETONES,URINE TRACE (NEGATIVE); *UROBILINOGEN,URINE 0.2 E.U./dl (NORMAL); LEUKOCYTE ESTERASE ,URINE NEGATIVE (NEGATIVE); NITRITE, URINE NEGATIVE (NEGATIVE); PH,URINE 6.5 (5.0-8.0); UGLUCOSE NEGATIVE (NEGATIVE)
[2020-09-22 19:43] LABS: *CREATININE,URINE 46.1 mg/dL (30-125); *URINE TOTAL PROTEIN RANDOM 31.2 mg/dL (<150/24HR)
[2020-09-22 19:47] LABS: *CLARITY,URINE SLIGHTLY HAZY (CLEAR); BACTERIA,URINE FEW /HPF (NONE SEEN); SQUAMOUS EPITHELIAL CELL,UR FEW /HPF (NONE SEEN)
[2020-09-22 20:03] VITALS: BP 105/65
--- NOTE | 2020-09-22 20:14 | NUR ---
Patient in bed awake alert and able to make needs known.On O2 at 2LPM via NC.Denies SOB.No c/o pain.Midline in left upper arm 20g patent and intact with IVF infusing well. Colostomy in place.Safety measures in place. Will continue to monitor.
[2020-09-22] MEDS: TAMSULOSIN HCL 0.4 MG CAP.SR.24H PO SCH (20:20)
[2020-09-22] MEDS: MIRTAZAPINE 15 MG TABLET PO SCH (20:20)
[2020-09-22] MEDS: IV LACTATED RINGERS SOLUTION 1,000 ML IV PRN (20:35)
[2020-09-23] MEDS: IPRATROPIUM BROMIDE 0.5 MG/2.5 ML NEBU NEB SCH ×6 (03:24→22:30)
[2020-09-23] MEDS: ALBUTEROL SULFATE 2.5 MG/3 ML NEBU NEB SCH ×6 (03:24→22:30)
[2020-09-23 04:09] VITALS: BP 133/89
[2020-09-23] MEDS: methylPREDNISolone SOD SUCC 40 MG/ML VIAL IV SCH ×3 (05:57→21:09)
[2020-09-23] MEDS: PANTOPRAZOLE SODIUM 40 MG TABLET.DR PO SCH (06:06)
--- NOTE | 2020-09-23 07:15 | NUR ---
received patient in bed sleeping in stable condition. no complains of any SOB, pain or discomfort noted. colostomy bag intact. safety precautions in place. will continue to monitor.
[2020-09-23 07:16] LABS: HEMATOCRIT 46.4 % (36.7-47.1); MEAN CORPUSCULAR HEMOGLOBIN 26.5 uug (23.8-33.4); MEAN CORPUSCULAR VOLUME 82.8 fL (73.0-96.2); PLATELET COUNT (AUTO) 116 K/uL (152-348)
[2020-09-23 07:51] LABS: BILIRUBIN,TOTAL 0.5 mg/dL (0.2-1.0); MAGNESIUM 2.3 mg/dL (1.8-2.4); PHOSPHOROUS 1.5 mg/dL (2.5-4.9); POTASSIUM 3.2 mmol/L (3.5-5.1); TOTAL PROTEIN, SERUM 6.1 g/dL (6.4-8.2)
[2020-09-23 08:34] VITALS: BP 141/90
[2020-09-23] MEDS: ENOXAPARIN SODIUM 30 MG/0.3 ML DISP.SYRIN SUBCUT SCH (09:00)
[2020-09-23] MEDS: ALPRAZOLAM 0.25 MG TABLET PO SCH ×2 (09:34→17:33)
[2020-09-23] MEDS: SERTRALINE HCL 50 MG TABLET PO SCH (09:34)
[2020-09-23] MEDS: METHADONE HCL 10 MG TABLET PO SCH (09:34)
[2020-09-23] MEDS: DRONABINOL 2.5 MG CAPSULE PO SCH ×2 (09:35→17:33)
[2020-09-23] MEDS: MULTIVITAMINS,THERAPEUTIC TABLET PO SCH (09:35)
[2020-09-23] MEDS ORDERED: POTASSIUM CHLORIDE 20 MEQ TAB.PRT.SR PO ONE (09:45)
[2020-09-23] MEDS ORDERED: MIRALAX 17 GM POWD.PACK PO ONE (11:00)
[2020-09-23 11:37] VITALS: BP 127/83
[2020-09-23] MEDS: CEFTRIAXONE 1 G in IV DEXTROSE 5% 50 ML IV SCH (13:51)
[2020-09-23 15:30] VITALS: BP 138/86
[2020-09-23] MEDS ORDERED: NEUTRA PHOS PACKET PO ONE (16:15)
[2020-09-23] MEDS: ENSURE ENLIVE (VAN) 240 ML LIQUID PO SCH (17:33)
--- NOTE | 2020-09-23 18:36 | NUR ---
patient in bed awake in stable condition, no complains of any sob, pain or discomfort. call light within reach. will report to oncoming shift.
[2020-09-23 20:39] VITALS: BP 140/99
[2020-09-23] MEDS: MIRTAZAPINE 15 MG TABLET PO SCH (21:09)
[2020-09-23] MEDS: TAMSULOSIN HCL 0.4 MG CAP.SR.24H PO SCH (21:09)
[2020-09-23] MEDS: IV LACTATED RINGERS SOLUTION 1,000 ML IV PRN (21:15)
--- NOTE | 2020-09-23 22:16 | NUR ---
Patient in bed awake and verbally responsive in no apparent distress noted. On Ra.Midline on left upper arm patent and intact with IVF running well.Colostomy bag in place. Patient denies pain at this time. Compliant with medication.Call light with in reach. Will continue to monitor.
[2020-09-24] MEDS: ALBUTEROL SULFATE 2.5 MG/3 ML NEBU NEB SCH ×6 (02:30→22:30)
[2020-09-24] MEDS: IPRATROPIUM BROMIDE 0.5 MG/2.5 ML NEBU NEB SCH ×6 (02:30→22:30)
[2020-09-24 04:00] VITALS: BP 119/87
[2020-09-24] MEDS: methylPREDNISolone SOD SUCC 40 MG/ML VIAL IV SCH ×3 (05:29→22:08)
[2020-09-24 06:29] LABS: HEMATOCRIT 45.5 % (36.7-47.1); MEAN CORPUSCULAR VOLUME 84.1 fL (73.0-96.2); PLATELET COUNT (AUTO) 122 K/uL (152-348)
[2020-09-24] MEDS: PANTOPRAZOLE SODIUM 40 MG TABLET.DR PO SCH (06:31)
[2020-09-24 07:21] LABS: *RHEUMATOID FACTOR SCREEN POSITIVE (NEGATIVE)
--- NOTE | 2020-09-24 07:33 | NUR ---
Received patient awake in bed. AOx3-4. On room air. No signs of acute distress. Left upper arm midline with IVF running well. Patient denies pain/ discomfort at this time. Call light within reach. Will continue to monitor.
[2020-09-24 07:38] LABS: CREATININE 0.9 mg/dL (0.6-1.3); MAGNESIUM 1.9 mg/dL (1.8-2.4); POTASSIUM 3.6 mmol/L (3.5-5.1)
[2020-09-24] MEDS: MULTIVITAMINS,THERAPEUTIC TABLET PO SCH (09:00)
[2020-09-24] MEDS: SERTRALINE HCL 50 MG TABLET PO SCH (09:00)
[2020-09-24] MEDS: ALPRAZOLAM 0.25 MG TABLET PO SCH ×2 (09:00→17:18)
[2020-09-24] MEDS: DRONABINOL 2.5 MG CAPSULE PO SCH ×2 (09:00→17:18)
[2020-09-24] MEDS: METHADONE HCL 10 MG TABLET PO SCH ×2 (09:00→11:10)
[2020-09-24] MEDS: ENSURE ENLIVE (VAN) 240 ML LIQUID PO SCH ×2 (09:38→18:06)
[2020-09-24] MEDS: ENOXAPARIN SODIUM 30 MG/0.3 ML DISP.SYRIN SUBCUT SCH (09:51)
[2020-09-24] MEDS: IV LACTATED RINGERS SOLUTION 1,000 ML IV PRN (09:56)
[2020-09-24 11:19] LABS: *OCCULT BLOOD STOOL NEGATIVE (NEGATIVE)
[2020-09-24 12:00] VITALS: BP 133/89
[2020-09-24] MEDS: CEFTRIAXONE 1 G in IV DEXTROSE 5% 50 ML IV SCH (15:11)
[2020-09-24 15:37] VITALS: BP 140/93
--- NOTE | 2020-09-24 19:00 | NUR ---
RECEIVED REPORT FROM AM NURSE PT IS ALERT AND ORIENTED ASSESSED PT DENIES PAIN NO SIGNS OF RESPIRATORY DISTRESS NOTED. HAS IVF OF LR TOLERATING WELL NO SIGNS OF DISTRESS NOTED. COLOSTOMY BAG INTACT OSTOMY IS PINK AND MOIST NO SIGNS OF ABNORMALITY NOTED. WILL CONTINUE TO MONITOR.
--- NOTE | 2020-09-24 19:27 | NUR ---
Patient awake in bed. On room air. No signs of acute distress. with left upper arm midline running LR at 100ml/hr. with colostomy bag. compliant with medications and care. bed alarm on. call light within reach. will endorse to incoming shift for continuity of care.
[2020-09-24 20:00] VITALS: BP 167/99
--- NOTE | 2020-09-24 22:00 | NUR ---
PT IS ALERT CALLED FOR ASSISTANCE PT SOILED HOSPITAL PANTS AND SOCKS. PT CLEANED AND DRIED CLEAN SOCKS AND PANTS APPLIED. CHECKED PT IS ASLEEP NO SIGNS OF DISTRESS NOTED.
[2020-09-24] MEDS: TAMSULOSIN HCL 0.4 MG CAP.SR.24H PO SCH (22:08)
[2020-09-24] MEDS: MIRTAZAPINE 15 MG TABLET PO SCH (22:08)
[2020-09-25] MEDS: ALBUTEROL SULFATE 2.5 MG/3 ML NEBU NEB SCH ×6 (02:30→23:30)
[2020-09-25] MEDS: IPRATROPIUM BROMIDE 0.5 MG/2.5 ML NEBU NEB SCH ×6 (02:30→23:30)
[2020-09-25 04:00] VITALS: BP 153/96
[2020-09-25 05:07] LABS: HEPATITIS B SURFACE AB Reactive (.); HEPATITIS B SURFACE AG Negative (Negative)
[2020-09-25 06:18] LABS: *BILIRUBIN,URIN NEGATIVE (NEGATIVE); *BLOOD, URINE 1+ (NEGATIVE); *CLARITY,URINE CLEAR (CLEAR); *COLOR,URINE YELLOW (YELLOW); *KETONES,URINE NEGATIVE (NEGATIVE); *UROBILINOGEN,URINE 0.2 E.U./dl (NORMAL); LEUKOCYTE ESTERASE ,URINE NEGATIVE (NEGATIVE); NITRITE, URINE NEGATIVE (NEGATIVE); PH,URINE 7.5 (5.0-8.0); UGLUCOSE NEGATIVE (NEGATIVE)
[2020-09-25 06:32] LABS: HEMATOCRIT 40.9 % (36.7-47.1); PLATELET COUNT (AUTO) 120 K/uL (152-348)
[2020-09-25] MEDS: methylPREDNISolone SOD SUCC 40 MG/ML VIAL IV SCH ×3 (06:52→21:21)
[2020-09-25] MEDS: PANTOPRAZOLE SODIUM 40 MG TABLET.DR PO SCH (06:52)
[2020-09-25] MEDS: ENSURE ENLIVE (VAN) 240 ML LIQUID PO SCH ×2 (06:52→17:12)
[2020-09-25 07:02] LABS: BILIRUBIN,TOTAL 0.3 mg/dL (0.2-1.0); CREATININE 0.7 mg/dL (0.6-1.3); POTASSIUM 3.3 mmol/L (3.5-5.1); TOTAL PROTEIN, SERUM 5.8 g/dL (6.4-8.2)
--- NOTE | 2020-09-25 07:05 | NUR ---
Pt awaken had an accident changed gown and pants medication given as ordered will endorse to am nurse.
[2020-09-25 08:06] LABS: *IMMUNOGLOBULIN G, SERUM 711 mg/dL (603-1613); IMMUNOGLOBULIN A, SERUM 197 mg/dL (61-437); IMMUNOGLOBULIN M, SERUM 159 mg/dL (20-172)
[2020-09-25 09:06] LABS: A/G RATIO 1.2 (0.7-1.7); ALBUMIN 3.3 g/dL (2.9-4.4); ALPHA-1-GLOBULIN 0.2 g/dL (0.0-0.4); ALPHA-2-GLOBULIN 0.8 g/dL (0.4-1.0); BETA GLOBULIN 0.8 g/dL (0.7-1.3); GAMMA GLOBULIN 0.9 g/dL (0.4-1.8); GLOBULIN, TOTAL 2.7 g/dL (2.2-3.9); M-SPIKE Not Observed g/dL (Not Observed)
[2020-09-25 09:06] LABS: *ANTI-SCLERODERMA-70 AB <0.2 AI (0.0-0.9); *SJOGREN'S ANTI-SS-A <0.2 AI (0.0-0.9); *SJOGREN'S ANTI-SS-B <0.2 AI (0.0-0.9); *SMITH ANTIBODIES <0.2 AI (0.0-0.9); ANTI-DNA(DS) AB, QN <1 IU/mL (0-9)
[2020-09-25] MEDS: CLOPIDOGREL 75 MG TABLET PO SCH (09:22)
[2020-09-25] MEDS: MULTIVITAMINS,THERAPEUTIC TABLET PO SCH (09:23)
[2020-09-25] MEDS: ALPRAZOLAM 0.25 MG TABLET PO SCH (09:23)
[2020-09-25] MEDS: ASPIRIN EC 81 MG TABLET.DR PO SCH (09:23)
[2020-09-25] MEDS: SERTRALINE HCL 50 MG TABLET PO SCH (09:24)
[2020-09-25] MEDS: DRONABINOL 2.5 MG CAPSULE PO SCH ×2 (09:24→17:11)
[2020-09-25] MEDS: METHADONE HCL 10 MG TABLET PO SCH (09:25)
[2020-09-25] MEDS: ENOXAPARIN SODIUM 30 MG/0.3 ML DISP.SYRIN SUBCUT SCH (09:32)
[2020-09-25] MEDS ORDERED: POTASSIUM CHLORIDE 20 MEQ TAB.PRT.SR PO ONE (10:00)
[2020-09-25 10:06] LABS: A/G RATIO 1.2 (0.7-1.7); ALBUMIN 3.1 g/dL (2.9-4.4); ALPHA-1-GLOBULIN 0.2 g/dL (0.0-0.4); ALPHA-2-GLOBULIN 0.8 g/dL (0.4-1.0); BETA GLOBULIN 0.8 g/dL (0.7-1.3); GAMMA GLOBULIN 0.8 g/dL (0.4-1.8); GLOBULIN, TOTAL 2.6 g/dL (2.2-3.9); M-SPIKE Not Observed g/dL (Not Observed)
[2020-09-25] MEDS: IV LACTATED RINGERS SOLUTION 1,000 ML IV PRN ×2 (12:15→23:35)
[2020-09-25] MEDS: CEFTRIAXONE 1 G in IV DEXTROSE 5% 50 ML IV SCH (14:41)
[2020-09-25 14:56] LABS: BACTERIA,URINE MODERATE /HPF (NONE SEEN); SQUAMOUS EPITHELIAL CELL,UR FEW /HPF (NONE SEEN); URINE AMORPHOUS PHOSPHATES FEW /HPF
[2020-09-25 16:00] VITALS: BP_SYST 130; BP_SYST 152; BP_DIAS 51; BP_DIAS 98
--- NOTE | 2020-09-25 18:00 | NUR ---
Patient remains alert, oriented x 3, not in any form of distress on room air. He denies any pain or discomfort. Patient is compliant with medications and care. Peripheral IV line intact and patent on left arm, no signs of infection. Colostomy bag in place. Patient participated with PT. Needs attended to promptly. Will continue to monitor and will endorse accordingly.
--- NOTE | 2020-09-25 19:30 | NUR ---
Patient awake in bed, AOx3. On room air. No signs of acute distress. Patient denies pain/ discomfort. Patient with left arm midline, patent and intact. Colostomy bag in place. Call light within reach. Will continue to monitor.
[2020-09-25 20:00] VITALS: BP 140/95
[2020-09-25] MEDS: TAMSULOSIN HCL 0.4 MG CAP.SR.24H PO SCH (20:27)
[2020-09-25] MEDS: MIRTAZAPINE 15 MG TABLET PO SCH (20:27)
[2020-09-26] MEDS: IPRATROPIUM BROMIDE 0.5 MG/2.5 ML NEBU NEB SCH ×6 (03:30→22:30)
[2020-09-26] MEDS: ALBUTEROL SULFATE 2.5 MG/3 ML NEBU NEB SCH ×6 (03:30→22:30)
[2020-09-26 04:00] VITALS: BP 164/112
[2020-09-26] MEDS: methylPREDNISolone SOD SUCC 40 MG/ML VIAL IV SCH ×3 (05:06→21:16)
[2020-09-26] MEDS: PANTOPRAZOLE SODIUM 40 MG TABLET.DR PO SCH (06:05)
[2020-09-26 06:31] LABS: CREATININE 0.7 mg/dL (0.6-1.3); POTASSIUM 3.1 mmol/L (3.5-5.1)
[2020-09-26] MEDS: ENSURE ENLIVE (VAN) 240 ML LIQUID PO SCH ×2 (08:00→17:00)
--- NOTE | 2020-09-26 08:00 | NUR ---
Patient received in bed, alert and oriented x4, but forgetful and requires redirection. Patient on RA with no SOB or difficulties breathing. No acute distress noted at this time. Colostomy bag in place. Left UA midline in place with no redness or swelling noted at this time, infusing IVF at 100 mL/h as ordered. Urinal and call light within easy reach. Will continue to monitor.
--- NOTE | 2020-09-26 08:10 | NUR ---
Informed [facility] provider Dereje Gregory of BP 160/106 this AM with no new orders at this time.
[2020-09-26 08:20] VITALS: BP 160/106
[2020-09-26] MEDS: DRONABINOL 2.5 MG CAPSULE PO SCH ×2 (09:20→16:22)
[2020-09-26] MEDS: METHADONE HCL 10 MG TABLET PO SCH (09:20)
[2020-09-26] MEDS: CLOPIDOGREL 75 MG TABLET PO SCH (09:21)
[2020-09-26] MEDS: MULTIVITAMINS,THERAPEUTIC TABLET PO SCH (09:21)
[2020-09-26] MEDS: ASPIRIN EC 81 MG TABLET.DR PO SCH (09:21)
[2020-09-26] MEDS: ENOXAPARIN SODIUM 30 MG/0.3 ML DISP.SYRIN SUBCUT SCH (09:24)
[2020-09-26] MEDS ORDERED: POTASSIUM CHLORIDE 20 MEQ TAB.PRT.SR PO ONE (09:30)
[2020-09-26 11:12] VITALS: BP 144/99
--- NOTE | 2020-09-26 11:17 | NUR ---
BP is now 144/99. Will continue to monitor.
--- NOTE | 2020-09-26 11:25 | NUR ---
New order for lisinopril noted at this time.
[2020-09-26] MEDS: ALPRAZOLAM 0.25 MG TABLET PO PRN ×3 (11:34→21:16)
[2020-09-26] MEDS: LISINOPRIL 5 MG TABLET PO SCH (11:34)
[2020-09-26] MEDS: IV LACTATED RINGERS SOLUTION 1,000 ML IV PRN (11:38)
--- NOTE | 2020-09-26 12:55 | NUR ---
Patient continues to use call michael to call for help, but when I enter the room, patient continually exposes his genitalia and requests for a colostomy bag change. Informed the patient that colostomy bag is empty and does not need to be changed. No other pain or discomforts noted at this time. Call michael within easy reach. IVF running as ordered. Will continue to monitor.
[2020-09-26 15:45] VITALS: BP 154/111
--- NOTE | 2020-09-26 16:11 | NUR ---
Patient is restless and states he feels extremely anxious. Xanax administered and will continue to monitor.
[2020-09-26 20:00] VITALS: BP 152/109
[2020-09-26] MEDS: MIRTAZAPINE 15 MG TABLET PO SCH (21:16)
[2020-09-26] MEDS: ACETAMINOPHEN 325 MG TABLET PO PRN (21:16)
[2020-09-26] MEDS: TAMSULOSIN HCL 0.4 MG CAP.SR.24H PO SCH (21:16)
--- NOTE | 2020-09-26 21:30 | NUR ---
Received pt earlier during shift no signs of distress pt c/o pain and anxiety along with pain medication. pt took medication had no adverse reaction noted. Will continue to monitor noted.l
[2020-09-27] MEDS: ALBUTEROL SULFATE 2.5 MG/3 ML NEBU NEB SCH ×6 (02:30→22:30)
[2020-09-27] MEDS: IPRATROPIUM BROMIDE 0.5 MG/2.5 ML NEBU NEB SCH ×6 (02:30→22:30)
[2020-09-27 04:00] VITALS: BP 138/100
[2020-09-27] MEDS: ALPRAZOLAM 0.25 MG TABLET PO PRN ×3 (05:13→21:28)
[2020-09-27] MEDS: ACETAMINOPHEN 325 MG TABLET PO PRN ×2 (05:13→21:28)
--- NOTE | 2020-09-27 05:57 | NUR ---
PT C/O PAIN NO SIGNS OFDISTRESS NOTED. PT WAS GIVEN XANAX FOR ANXIETY AND TYLENOL FOR PAIN NO ADVERSE REACTION FROM MEDICATION. RECHECKED PT AND HE IS RESTING CALMLY.
[2020-09-27] MEDS: methylPREDNISolone SOD SUCC 40 MG/ML VIAL IV SCH ×3 (06:34→21:27)
[2020-09-27] MEDS: PANTOPRAZOLE SODIUM 40 MG TABLET.DR PO SCH (06:34)
[2020-09-27] MEDS: IV LACTATED RINGERS SOLUTION 1,000 ML IV PRN (07:41)
[2020-09-27 07:42] LABS: CREATININE 0.8 mg/dL (0.6-1.3); POTASSIUM 3.8 mmol/L (3.5-5.1)
[2020-09-27] MEDS: ENSURE ENLIVE (VAN) 240 ML LIQUID PO SCH ×2 (08:46→16:53)
[2020-09-27] MEDS: CLOPIDOGREL 75 MG TABLET PO SCH (08:47)
[2020-09-27] MEDS: DRONABINOL 2.5 MG CAPSULE PO SCH ×2 (08:47→16:50)
[2020-09-27] MEDS: MULTIVITAMINS,THERAPEUTIC TABLET PO SCH (08:47)
[2020-09-27] MEDS: ASPIRIN EC 81 MG TABLET.DR PO SCH (08:47)
[2020-09-27] MEDS: METHADONE HCL 10 MG TABLET PO SCH (08:50)
[2020-09-27] MEDS: LISINOPRIL 5 MG TABLET PO SCH (08:53)
[2020-09-27] MEDS: ENOXAPARIN SODIUM 30 MG/0.3 ML DISP.SYRIN SUBCUT SCH (08:56)
[2020-09-27 15:46] VITALS: BP 152/102
[2020-09-27] MEDS ORDERED: CEFTRIAXONE 1 G in IV DEXTROSE 5% 50 ML IV SCH (18:00)
--- NOTE | 2020-09-27 18:58 | NUR ---
Received a call from Dereje Gregory NP to do bladder scan post void. Bladder scan showed 240ml and BP noted 152/102, left a message to Dereje Gregory NP awaiting for reply. Patient remains alert, oriented x 3, not in any form of distress, on room air. He denies any pain or discomfort at this time. Will continue to monitor and will endorse accordingly.
[2020-09-27 20:00] VITALS: BP 144/101
--- NOTE | 2020-09-27 20:00 | NUR ---
RECEIVED REPORT FROM AM NURSE PT HADE BLADDER SCAN WAS 200ML LEFT IN BLADDER. DR. HUERTA ORDERED INSERTION OF FARIA CATH. DISCUSSED WITH PATIENT AND HE REFUSED. INFORMED DR HUERTA PT REFUSED THE FARIA. WILL CONTINUE TO MONITOR URINE OUTPUT.
[2020-09-27] MEDS ORDERED: CLONIDINE HCL 0.1 MG TABLET PO ONE (20:30)
[2020-09-27] MEDS: TAMSULOSIN HCL 0.4 MG CAP.SR.24H PO SCH (21:27)
[2020-09-27] MEDS: MIRTAZAPINE 15 MG TABLET PO SCH (21:28)
--- NOTE | 2020-09-27 22:00 | NUR ---
Patient refused Mcmillan insertion; Colt DAVILA is aware.
--- NOTE | 2020-09-28 | NUR ---
PT MONITOR NO SIGNS OF RESPIRATORY DISTRESS NOTED AND TOOK HS MEDICATION NO SIGNS OF ADVERSE REACTION NOTED. WILL CONTINUE TO MONITORFOR SAFETY AND OTHER NEED S PATIENT MAY HAVE.
[2020-09-28] MEDS: ALBUTEROL SULFATE 2.5 MG/3 ML NEBU NEB SCH ×4 (02:30→15:06)
[2020-09-28] MEDS: IPRATROPIUM BROMIDE 0.5 MG/2.5 ML NEBU NEB SCH ×4 (02:30→15:06)
[2020-09-28] MEDS: ACETAMINOPHEN 325 MG TABLET PO PRN (03:54)
[2020-09-28] MEDS: ALPRAZOLAM 0.25 MG TABLET PO PRN ×2 (03:54→16:27)
[2020-09-28 04:00] VITALS: BP 137/107
[2020-09-28 06:37] LABS: HEMATOCRIT 40.5 % (36.7-47.1); MEAN CORPUSCULAR HEMOGLOBIN 27.2 uug (23.8-33.4); PLATELET COUNT (AUTO) 154 K/uL (152-348)
[2020-09-28] MEDS: PANTOPRAZOLE SODIUM 40 MG TABLET.DR PO SCH (06:41)
[2020-09-28] MEDS: methylPREDNISolone SOD SUCC 40 MG/ML VIAL IV SCH (06:41)
[2020-09-28 06:48] LABS: CREATININE 0.7 mg/dL (0.6-1.3); MAGNESIUM 1.6 mg/dL (1.8-2.4); POTASSIUM 3.9 mmol/L (3.5-5.1)
[2020-09-28] MEDS: ENSURE ENLIVE (VAN) 240 ML LIQUID PO SCH (08:45)
[2020-09-28] MEDS: METHADONE HCL 10 MG TABLET PO SCH (08:50)
[2020-09-28] MEDS: ASPIRIN EC 81 MG TABLET.DR PO SCH (08:50)
[2020-09-28] MEDS: CLOPIDOGREL 75 MG TABLET PO SCH (08:51)
[2020-09-28] MEDS: LISINOPRIL 5 MG TABLET PO SCH (08:51)
[2020-09-28] MEDS: DRONABINOL 2.5 MG CAPSULE PO SCH (08:51)
[2020-09-28] MEDS: MULTIVITAMINS,THERAPEUTIC TABLET PO SCH (08:52)
[2020-09-28] MEDS: ENOXAPARIN SODIUM 30 MG/0.3 ML DISP.SYRIN SUBCUT SCH ×2 (08:53→09:00)
[2020-09-28] MEDS ORDERED: FINASTERIDE 5 MG TABLET PO SCH (09:00)
[2020-09-28] MEDS ORDERED: hydrALAZINE HCL 20 MG/1 ML VIAL IV PRN (09:30)
[2020-09-28] MEDS: MAGNESIUM SULFATE/D5W 100 ML IV SCH ×2 (10:28→12:01)
[2020-09-28 11:51] VITALS: BP 138/102
[2020-09-28 15:35] LABS: AFP, TUMOR MARKER 1.9
[2020-09-28 15:51] VITALS: BP 163/111
--- NOTE | 2020-09-28 17:00 | NUR ---
Patient remains alert, not in any form of distress, on room air. He denies any pain or discomfort at this time. Vital signs stable. Skin intact, kept and clean and comfortable. Colostomy bag in place. Left upper arm midline intact and patent, no noted signs and symptoms of infection. Discharged patient to [facility]. Report given to Chana from [facility]. Patient picked up by [facility] ambulance transferred via gurney.
[2020-09-29] MEDS ORDERED: LISINOPRIL 5 MG TABLET PO SCH (09:00)
== END 2020-09-28 16:30 | DRG 640 ==
LOC: ER 10:31 → MEDSURG3 22:39
PROVIDERS: ADMIT Nurse Practitioner Acute Care; ATTEND Nurse Practitioner Acute Care
PROC: 05HA33Z Insertion of Infusion Device into Left Brachial Vein, Percutaneous Approach (ICD-10-PCS; principal; 2020-09-22)
PROC: BF36ZZZ Magnetic Resonance Imaging (MRI) of Liver and Spleen (ICD-10-PCS; 2020-09-24)
PROC: BF37ZZZ Magnetic Resonance Imaging (MRI) of Pancreas (ICD-10-PCS; 2020-09-24)
DX: R62.7 Adult failure to thrive (principal); E43 Unspecified severe protein-calorie malnutrition; N17.0 Acute kidney failure with tubular necrosis; J44.1 Chronic obstructive pulmonary disease with (acute) exacerbation; E87.2 Acidosis; Z68.1 Body mass index [BMI] 19.9 or less, adult; R64 Cachexia; G93.49 Other encephalopathy; F11.20 Opioid dependence, uncomplicated; N39.0 Urinary tract infection, site not specified; D61.818 Other pancytopenia; Z93.3 Colostomy status; B19.20 Unspecified viral hepatitis C without hepatic coma; G89.4 Chronic pain syndrome; E87.6 Hypokalemia; N40.0 Benign prostatic hyperplasia without lower urinary tract symptoms; B95.4 Other streptococcus as the cause of diseases classified elsewhere; Z20.822 Contact with and (suspected) exposure to COVID-19; Z87.442 Personal history of urinary calculi; I35.0 Nonrheumatic aortic (valve) stenosis; F32.9 Major depressive disorder, single episode, unspecified; F41.9 Anxiety disorder, unspecified
CPT/HCPCS: 36415; 70030-TC; 71045; 71250; 74181; 76770; 82105; 82378; 82747; 82784; 83550; 83605; 83690; 83735; 83970; 84100; 84153; 84155; 84156; 84165; 84300; 84443; 85014; 85025; 85730; 86038; 86140; 86301; 86334; 86430; 86706; 86803; 87040; 87086; 87340; 93005; 94640; 97161; A4663; G0378; J0360; J0696; J1650; J2920; J3475; J3590; J7030; J7040; J7050; J7060; J7120; Q0167; Q9967

== ENCOUNTER 2020-10-02 09:12 | Emergency (ER) | payer MEDICARE, OTHER ==
[~2020-10-02] VITALS: Ht 167.6 cm; Wt 40.8 kg
[~2020-10-02 09:12] MED LIST changes: -ALPR0.255 PO; -ENOX30DI SUBCUT; -MIRT-93 PO; -MULT-24 PO; -PANT40TA2 PO; -SERT25TA PO
[2020-10-02] MEDS ORDERED: SWABABLE VALVE TRANSFER SET EA MC ONE (09:36)
[2020-10-02] MEDS ORDERED: IOHEXOL 300MG/ML 100 ML INFUS..BTL ONE (09:36)
[2020-10-02] MEDS ORDERED: IOPAMIDOL 15 ML VIAL IT ONE (09:36)
[2020-10-02] MEDS ORDERED: ASPI81TA31 PO (09:39)
[2020-10-02] MEDS ORDERED: FINA5TAB11 PO (09:39)
[2020-10-02] MEDS ORDERED: ALPR0.255 PO (09:39)
[2020-10-02] MEDS ORDERED: LISI10TA29 PO (09:39)
[2020-10-02] MEDS ORDERED: IPRA3AMP23 IH (09:39)
[2020-10-02] MEDS ORDERED: CLOP75TA15 PO (09:39)
[2020-10-02] MEDS ORDERED: CLOT12CR TP (09:39)
[2020-10-02 09:56] LABS: HEMATOCRIT 49.8 % (36.7-47.1); MEAN CORPUSCULAR HEMOGLOBIN 26.9 uug (23.8-33.4); MEAN CORPUSCULAR VOLUME 85.2 fL (73.0-96.2); PLATELET COUNT (AUTO) 150 K/uL (152-348)
[2020-10-02 10:03] LABS: CREATININE 0.9 mg/dL (0.6-1.3); POTASSIUM 3.5 mmol/L (3.5-5.1)
[2020-10-02 10:09] LABS: BILIRUBIN,DIRECT 0.2 mg/dL (0.0-0.2); BILIRUBIN,TOTAL 0.3 mg/dL (0.2-1.0); TOTAL PROTEIN, SERUM 6.1 g/dL (6.4-8.2)
--- NOTE | 2020-10-02 12:15 | NUR ---
Called for ambulance transfer back to [facility]. ETA 30-45 minutes.
--- NOTE | 2020-10-02 12:25 | NUR ---
Called report to OLIVIA Nurse at [facility].
--- NOTE | 2020-10-02 13:14 | NUR ---
Pt d/c back to his SNF ([facility]) via [facility] as ordered by .
--- NOTE | 2020-10-02 13:14 | NUR ---
ACI given to EMT.
== END 2020-10-02 13:15 ==
LOC: ER 09:12
DX: R62.7 Adult failure to thrive (principal); Z68.1 Body mass index [BMI] 19.9 or less, adult; R91.8 Other nonspecific abnormal finding of lung field; N40.0 Benign prostatic hyperplasia without lower urinary tract symptoms; J43.9 Emphysema, unspecified; M85.80 Other specified disorders of bone density and structure, unspecified site; N20.0 Calculus of kidney; Z93.3 Colostomy status; G89.4 Chronic pain syndrome; Z86.69 Personal history of other diseases of the nervous system and sense organs; Z79.891 Long term (current) use of opiate analgesic; Z79.82 Long term (current) use of aspirin; Z79.899 Other long term (current) drug therapy
CPT/HCPCS: 36415; 83690; 85025; A4663; Q9967

== ENCOUNTER 2020-10-04 12:04 | Inpatient (IN) | payer MEDICARE, OTHER ==
[~2020-10-04] VITALS: Ht 167.6 cm; Wt 35.6 kg
[~2020-10-04 12:04] MED LIST changes: +ALPR0.255 PO; +ASPI81TA31 PO; -CALC-11 PO; +CLOP75TA15 PO; +CLOT12CR TP; +FINA5TAB11 PO; +IPRA3AMP23 IH; +LISI10TA29 PO
[2020-10-04] MEDS ORDERED: HYDROCODONE/APAP 5-325MG TABLET PO ONE (12:30)
[2020-10-04] MEDS ORDERED: IV NORMAL SALINE 1000 ML BAG IV ONE (12:30)
[2020-10-04] MEDS ORDERED: HYDROCODONE/APAP 5-325MG TABLET ONE (12:55)
[2020-10-04 13:08] LABS: CREATININE 0.8 mg/dL (0.6-1.3); POTASSIUM 4.2 mmol/L (3.5-5.1)
[2020-10-04 13:15] LABS: HEMATOCRIT 42.5 % (36.7-47.1); MEAN CORPUSCULAR HEMOGLOBIN 26.8 uug (23.8-33.4); MEAN CORPUSCULAR VOLUME 84.7 fL (73.0-96.2); PLATELET COUNT (AUTO) 179 K/uL (152-348)
[2020-10-04 13:20] LABS: BILIRUBIN,DIRECT 0.2 mg/dL (0.0-0.2); BILIRUBIN,TOTAL 0.5 mg/dL (0.2-1.0); TOTAL PROTEIN, SERUM 6.2 g/dL (6.4-8.2)
[2020-10-04 14:43] LABS: *BILIRUBIN,URIN NEGATIVE (NEGATIVE); *BLOOD, URINE 3+ (NEGATIVE); *CLARITY,URINE SLIGHTLY CLOUDY (CLEAR); *COLOR,URINE YELLOW (YELLOW); *KETONES,URINE NEGATIVE (NEGATIVE); *UROBILINOGEN,URINE 0.2 E.U./dl (NORMAL); LEUKOCYTE ESTERASE ,URINE NEGATIVE (NEGATIVE); NITRITE, URINE NEGATIVE (NEGATIVE); PH,URINE 5.5 (5.0-8.0)
[2020-10-04] MEDS ORDERED: IV NS 1000 ML 1,000 ML IV ONE ×2 (14:45→18:15)
[2020-10-04 14:55] LABS: UGLUCOSE 1+ (NEGATIVE)
[2020-10-04 14:58] LABS: BACTERIA,URINE MANY /HPF (NONE SEEN); MUCUS,URINE FEW /LPF (0-FEW); RBC,URINE TNTC /HPF (0-3); SQUAMOUS EPITHELIAL CELL,UR FEW /HPF (NONE SEEN); URINE AMORPHOUS URATE MANY /HPF; WBC,URINE TNTC /HPF (0-3)
[2020-10-04] MEDS ORDERED: CEFTRIAXONE 1 G in IV DEXTROSE 5% 50 ML IV ONE (15:30)
[2020-10-04] MEDS ORDERED: CEFTRIAXONE 1 G VIAL ONE (17:58)
--- NOTE | 2020-10-04 18:00 | NUR ---
Dr Rhodes spoke to Dr Reid for pt's admit.
[2020-10-04] MEDS ORDERED: ONDANSETRON 4 MG/2 ML VIAL IV PRN (18:15)
[2020-10-04] MEDS ORDERED: MAGNESIUM HYDROXIDE 30 ML LIQUID UDC PO PRN (18:15)
[2020-10-04] MEDS ORDERED: Z GUARD REMEDY PASTE 57 GM TUBE TOP PRN (18:15)
[2020-10-04] MEDS ORDERED: CLOTRIMAZOLE 1% CREAM 30 GM TUBE TP SCH (21:00)
[2020-10-04] MEDS: TAMSULOSIN HCL 0.4 MG CAP.SR.24H PO SCH (23:23)
--- NOTE | 2020-10-04 23:23 | NUR ---
Took over care from Flower NOVAK ([place]).
[2020-10-04] MEDS ORDERED: TAMSULOSIN HCL 0.4 MG CAP.SR.24H ONE (23:30)
--- NOTE | 2020-10-05 01:15 | NUR ---
Patient transfered to 3rd floor Med Surg.
[2020-10-05 01:49] VITALS: BP 140/85
--- NOTE | 2020-10-05 02:31 | NUR ---
Pt arrived in the unit at 1:10am via gurney from ER. AAO x 1-2. On 3L O2 via NC, no acute distress noted. Denies pain/ discomfort. Pt has left upper arm midline, patent and intact. Colostomy bag in place. Pt has sacral redness, picture taken. Mepilex applied on sacral area, turned and repositioned. Both heels and elbows offloaded. Pt oriented to room and equipment. Safety measures maintained. Call light within reach. Will continue to monitor.
[2020-10-05 04:15] VITALS: BP 128/85
[2020-10-05 07:21] LABS: MEAN CORPUSCULAR HEMOGLOBIN 27.3 uug (23.8-33.4); MEAN CORPUSCULAR VOLUME 84.7 fL (73.0-96.2); PLATELET COUNT (AUTO) 170 K/uL (152-348)
[2020-10-05 07:40] LABS: CARBON DIOXIDE 33 mmol/L (21-32); CHLORIDE 107 mmol/L (98-107); CHOLESTEROL 134 mg/dL (<200); CREATININE 0.5 mg/dL (0.6-1.3); GLUCOSE 78 mg/dL (74-106); HDL CHOLESTEROL 66 mg/dL (40-60); MAGNESIUM 2.1 mg/dL (1.8-2.4); PHOSPHOROUS 2.1 mg/dL (2.5-4.9); POTASSIUM 3.9 mmol/L (3.5-5.1); TRIGLYCERIDES 55 MG/DL (30-150); UREA NITROGEN, BLOOD 17 mg/dL (7-18)
[2020-10-05] MEDS ORDERED: CLOTRIMAZOLE 1% CREAM 30 GM TUBE TP SCH (09:00)
[2020-10-05] MEDS ORDERED: DRONABINOL 2.5 MG CAPSULE PO SCH (09:00)
[2020-10-05] MEDS ORDERED: Medication Not On Formulary EA ([Lactose-Free Food] 240 ML) PO SCH (09:00)
[2020-10-05] MEDS: ASPIRIN 81 MG TAB.CHEW PO SCH (09:13)
[2020-10-05] MEDS: DOCUSATE SODIUM 100 MG CAPSULE PO SCH ×2 (09:13→16:37)
[2020-10-05] MEDS: MULTIVITAMINS,THERAPEUTIC TABLET PO SCH (09:14)
[2020-10-05] MEDS: CLOPIDOGREL 75 MG TABLET PO SCH (09:14)
[2020-10-05] MEDS: FINASTERIDE 5 MG TABLET PO SCH (09:14)
[2020-10-05] MEDS: MEGESTROL ACETATE 400 MG/10 ML LIQUID UDC PO SCH ×2 (09:15→20:10)
[2020-10-05] MEDS: METHADONE HCL 10 MG TABLET PO SCH (09:17)
[2020-10-05] MEDS: LISINOPRIL 10 MG TABLET PO SCH (09:18)
[2020-10-05] MEDS: ALPRAZOLAM 0.25 MG TABLET PO SCH ×2 (09:48→16:37)
[2020-10-05 11:46] VITALS: BP 124/82
[2020-10-05] MEDS: ENSURE ENLIVE (VAN) 240 ML LIQUID PO SCH ×2 (12:15→18:10)
[2020-10-05] MEDS: CLOTRIMAZOLE 1% CREAM 30 GM TUBE TP SCH ×2 (13:18→20:10)
[2020-10-05] MEDS: IPRATROPIUM BROMIDE 0.5 MG/2.5 ML NEBU NEB SCH ×2 (15:30→19:10)
[2020-10-05] MEDS: ALBUTEROL SULFATE 2.5 MG/ 0.5 ML NEBU NEB SCH ×2 (15:30→19:10)
[2020-10-05 15:49] VITALS: BP 106/71
[2020-10-05] MEDS ORDERED: NEUTRA PHOS PACKET PO ONE (16:30)
[2020-10-05] MEDS: MIRTAZAPINE 15 MG TABLET PO SCH (18:09)
--- NOTE | 2020-10-05 18:25 | NUR ---
Pt cooperative t/o the day. AAO x2. Pt ate 50% of the meals, compliant with meds. Due meds given as ordered. On 3L O2 via NC, no acute distress noted. Colostomy bag intact. Turned and repositioned, both heels offloaded. DESTINEE midline, patent and intact. Safety measures maintained. Call light within reach. Will endorse accordingly.
[2020-10-05 20:00] VITALS: BP 104/75
[2020-10-05] MEDS: TAMSULOSIN HCL 0.4 MG CAP.SR.24H PO SCH (20:10)
[2020-10-06 04:00] VITALS: BP 101/74
--- NOTE | 2020-10-06 05:46 | NUR ---
Patient awake and alert. Oriented to self and place. Cooperative with care, at times forgetful and yells. Frequent reorientation provided. Afebrile. Stable on RA. No signs/symptoms of pain at this time. Continent, episodes of incontinence. NPO at midnight for KUB this am. Colostomy bag intact. No acute events occurred overnight.
[2020-10-06 06:37] LABS: HEMATOCRIT 36.4 % (36.7-47.1); MEAN CORPUSCULAR HEMOGLOBIN 27.4 uug (23.8-33.4); PLATELET COUNT (AUTO) 177 K/uL (152-348)
[2020-10-06 06:56] LABS: CARBON DIOXIDE 37 mmol/L (21-32); CHLORIDE 109 mmol/L (98-107); CREATININE 0.6 mg/dL (0.6-1.3); GLUCOSE 123 mg/dL (74-106); PHOSPHOROUS 1.7 mg/dL (2.5-4.9); POTASSIUM 3.7 mmol/L (3.5-5.1); UREA NITROGEN, BLOOD 19 mg/dL (7-18)
[2020-10-06] MEDS: IPRATROPIUM BROMIDE 0.5 MG/2.5 ML NEBU NEB SCH ×4 (07:35→19:30)
[2020-10-06] MEDS: ALBUTEROL SULFATE 2.5 MG/ 0.5 ML NEBU NEB SCH ×4 (07:35→19:30)
--- NOTE | 2020-10-06 08:00 | NUR ---
RECEIVED PATIENT IN BED AWAKE ALERT AND VERBALLY RESPONSIVE BUT IS DISORIENTED AND FORGETFUL ABLE TO ENGAGE IN CONVERSATIONS AT THIS TIME ABLE TO MAKE SIMPLE NEEDS KNOWN BUT IS TOTALLY DEPENDENT FOR ALL ADL ON O2 BUT OFTEN TIMES REMOVES NO SOB AT THIS TIME.MIDLINE REMAINS INTACT CALL LIGHTS AND PERSONAL BELONGINGS ARE WITHIN EASY REACH MADE COMFORTABLE WILL CONTINUE TO OBSERVE.
[2020-10-06] MEDS: ASPIRIN 81 MG TAB.CHEW PO SCH (08:34)
[2020-10-06] MEDS: MEGESTROL ACETATE 400 MG/10 ML LIQUID UDC PO SCH ×2 (08:34→20:51)
[2020-10-06] MEDS: FINASTERIDE 5 MG TABLET PO SCH (08:34)
[2020-10-06] MEDS: DOCUSATE SODIUM 100 MG CAPSULE PO SCH ×2 (08:34→17:07)
[2020-10-06] MEDS: METHADONE HCL 10 MG TABLET PO SCH (08:35)
[2020-10-06] MEDS: ALPRAZOLAM 0.25 MG TABLET PO SCH ×2 (08:35→17:07)
[2020-10-06] MEDS: CLOPIDOGREL 75 MG TABLET PO SCH (08:35)
[2020-10-06] MEDS: MULTIVITAMINS,THERAPEUTIC TABLET PO SCH (08:35)
[2020-10-06] MEDS: LISINOPRIL 10 MG TABLET PO SCH (08:36)
[2020-10-06] MEDS: CLOTRIMAZOLE 1% CREAM 30 GM TUBE TP SCH ×2 (08:38→22:15)
[2020-10-06] MEDS: AMOXICILLIN-CLAVUL 875-125MG TABLET PO SCH ×2 (08:46→20:51)
[2020-10-06] MEDS: ENSURE ENLIVE (VAN) 240 ML LIQUID PO SCH ×3 (08:47→17:08)
[2020-10-06 10:58] VITALS: BP 126/81
--- NOTE | 2020-10-06 11:00 | NUR ---
PATIENT SEEN AND EXAMINED BY DR LANDAVERDE WITH NO NEW ORDERS AT THIS TIME.
[2020-10-06 15:41] VITALS: BP 96/72
[2020-10-06] MEDS: MIRTAZAPINE 15 MG TABLET PO SCH (17:07)
[2020-10-06] MEDS ORDERED: NEUTRA PHOS PACKET PO ONE (17:30)
--- NOTE | 2020-10-06 18:00 | NUR ---
PHOS LEVEL IS 1.7 WITH NEUTROPHOS REPLACEMENT ORDER AND NOTED.GIVEN ORDERED
[2020-10-06 20:00] VITALS: BP 116/81
[2020-10-06] MEDS: TAMSULOSIN HCL 0.4 MG CAP.SR.24H PO SCH (20:50)
[2020-10-06] MEDS: ACETAMINOPHEN 325 MG TABLET PO PRN (20:51)
[2020-10-06] MEDS: Z GUARD REMEDY PASTE 57 GM TUBE TOP SCH (22:15)
[2020-10-07 05:40] VITALS: BP 103/75
--- NOTE | 2020-10-07 06:22 | NUR ---
PATIENT ALERT ORIENTED, NO SOB NO CHEST PAIN, HAD MILD GEN BODY PAIN, TYLENOL 650MG PO GIVEN WITH EFFECTIVE RESULTS. PATIENT COLOSTOMY BACK INTACT, WITH SMALL BROWNISH COLOR FECES, URINATE ON URINAL. CONT TO MONITOR.
[2020-10-07 07:02] LABS: CHLORIDE 105 mmol/L (98-107); CREATININE 0.6 mg/dL (0.6-1.3); GLUCOSE 113 mg/dL (74-106); PHOSPHOROUS 2.5 mg/dL (2.5-4.9); POTASSIUM 4.4 mmol/L (3.5-5.1); UREA NITROGEN, BLOOD 17 mg/dL (7-18)
[2020-10-07 07:04] LABS: CARBON DIOXIDE 40 mmol/L (21-32)
[2020-10-07] MEDS: IPRATROPIUM BROMIDE 0.5 MG/2.5 ML NEBU NEB SCH ×4 (07:35→20:33)
[2020-10-07] MEDS: ALBUTEROL SULFATE 2.5 MG/ 0.5 ML NEBU NEB SCH ×4 (07:35→20:33)
--- NOTE | 2020-10-07 08:00 | NUR ---
PT IN BED RESTING, A/OX4, ON NC AT 3L, PT ON AIR MATTRESS, URINAL AT BEDSIDE. PT HAS IV ON THE LEFT UPPER ARM SALINE LOCK. BED LOW AND LOCKED, CALL LIGHT WITHIN REACH, WILL CONTINUE TO MONITOR.
[2020-10-07] MEDS: LISINOPRIL 10 MG TABLET PO SCH (09:00)
[2020-10-07] MEDS: DOCUSATE SODIUM 100 MG CAPSULE PO SCH ×2 (09:11→18:38)
[2020-10-07] MEDS: FINASTERIDE 5 MG TABLET PO SCH (09:12)
[2020-10-07] MEDS: METHADONE HCL 10 MG TABLET PO SCH (09:12)
[2020-10-07] MEDS: CLOPIDOGREL 75 MG TABLET PO SCH (09:12)
[2020-10-07] MEDS: ALPRAZOLAM 0.25 MG TABLET PO SCH ×2 (09:12→18:38)
[2020-10-07] MEDS: ASPIRIN 81 MG TAB.CHEW PO SCH (09:12)
[2020-10-07] MEDS: ENSURE ENLIVE (VAN) 240 ML LIQUID PO SCH ×3 (09:12→18:35)
[2020-10-07] MEDS: MULTIVITAMINS,THERAPEUTIC TABLET PO SCH (09:12)
[2020-10-07] MEDS: CLOTRIMAZOLE 1% CREAM 30 GM TUBE TP SCH ×2 (09:13→20:02)
[2020-10-07] MEDS: Z GUARD REMEDY PASTE 57 GM TUBE TOP SCH ×2 (09:13→20:03)
[2020-10-07] MEDS: MEGESTROL ACETATE 400 MG/10 ML LIQUID UDC PO SCH ×2 (09:14→20:05)
[2020-10-07 11:00] VITALS: BP 101/71
[2020-10-07] MEDS: CEFTRIAXONE 1 G in IV DEXTROSE 5% 50 ML IV SCH (11:21)
[2020-10-07] MEDS: AZITHROMYCIN IV 500 MG in IV DEXTROSE 5% 250 ML IV SCH (12:01)
[2020-10-07] MEDS: METRONIDAZOLE 500 MG/NS 100ML 500 MG in PREMIXED 1 EACH IV SCH ×2 (15:34→21:48)
--- NOTE | 2020-10-07 15:40 | NUR ---
PT GOING FOR HIPATOBILIARY IMAGING WITH [facility]. INFORMED CONSENT OBTAINED AND IN CHART.
--- NOTE | 2020-10-07 17:50 | NUR ---
PT BACK ON FLOOR, WILL CONTINUE TO MONITOR
[2020-10-07] MEDS: MIRTAZAPINE 15 MG TABLET PO SCH (18:38)
[2020-10-07 20:00] VITALS: BP 118/64
[2020-10-07] MEDS: TAMSULOSIN HCL 0.4 MG CAP.SR.24H PO SCH (20:03)
[2020-10-08 04:00] VITALS: BP 133/89
[2020-10-08] MEDS: METRONIDAZOLE 500 MG/NS 100ML 500 MG in PREMIXED 1 EACH IV SCH ×2 (05:07→14:27)
--- NOTE | 2020-10-08 05:33 | NUR ---
Pt slept throughout the night. Denies pain or SOB. Patient is refusing his Megace. Otherwise, patient is pleasant and able to make needs known. Safety and comfort provided. No other issues or concerns at this time, will endorse to day shift.
[2020-10-08] MEDS: ACETAMINOPHEN 325 MG TABLET PO PRN (06:01)
[2020-10-08 06:18] LABS: CARBON DIOXIDE 37 mmol/L (21-32); CHLORIDE 102 mmol/L (98-107); CREATININE 0.5 mg/dL (0.6-1.3); GLUCOSE 121 mg/dL (74-106); MAGNESIUM 1.8 mg/dL (1.8-2.4); PHOSPHOROUS 2.1 mg/dL (2.5-4.9)
[2020-10-08 06:25] LABS: HEMATOCRIT 38.6 % (36.7-47.1); MEAN CORPUSCULAR HEMOGLOBIN 27.2 uug (23.8-33.4); MEAN CORPUSCULAR VOLUME 84.7 fL (73.0-96.2); PLATELET COUNT (AUTO) 185 K/uL (152-348)
[2020-10-08 06:35] LABS: UREA NITROGEN, BLOOD 16 mg/dL (7-18)
[2020-10-08] MEDS: IPRATROPIUM BROMIDE 0.5 MG/2.5 ML NEBU NEB SCH ×4 (07:35→20:36)
[2020-10-08] MEDS: ALBUTEROL SULFATE 2.5 MG/ 0.5 ML NEBU NEB SCH ×4 (07:35→20:36)
[2020-10-08] MEDS: METHADONE HCL 10 MG TABLET PO SCH (08:17)
[2020-10-08] MEDS: CLOPIDOGREL 75 MG TABLET PO SCH (08:18)
[2020-10-08] MEDS: DOCUSATE SODIUM 100 MG CAPSULE PO SCH ×2 (08:18→16:50)
[2020-10-08] MEDS: ASPIRIN 81 MG TAB.CHEW PO SCH (08:18)
[2020-10-08] MEDS: FINASTERIDE 5 MG TABLET PO SCH (08:18)
[2020-10-08] MEDS: LISINOPRIL 10 MG TABLET PO SCH (08:19)
[2020-10-08] MEDS: MEGESTROL ACETATE 400 MG/10 ML LIQUID UDC PO SCH ×4 (08:19→20:19)
[2020-10-08] MEDS: ENSURE ENLIVE (VAN) 240 ML LIQUID PO SCH ×3 (08:19→16:51)
[2020-10-08] MEDS: MULTIVITAMINS,THERAPEUTIC TABLET PO SCH (08:20)
[2020-10-08] MEDS: ALPRAZOLAM 0.25 MG TABLET PO SCH ×2 (08:20→16:51)
[2020-10-08] MEDS: CLOTRIMAZOLE 1% CREAM 30 GM TUBE TP SCH ×2 (08:21→20:15)
[2020-10-08] MEDS: Z GUARD REMEDY PASTE 57 GM TUBE TOP SCH ×2 (08:21→20:15)
[2020-10-08] MEDS ORDERED: LINEZOLID IV 600 MG in PREMIXED 1 EACH IV SCH (09:00)
[2020-10-08] MEDS: CEFTRIAXONE 1 G in IV DEXTROSE 5% 50 ML IV SCH (09:29)
[2020-10-08] MEDS: AZITHROMYCIN IV 500 MG in IV DEXTROSE 5% 250 ML IV SCH (10:01)
[2020-10-08] MEDS: NITROFURANTOIN/NITROFURAN MAC 100 MG CAPSULE PO SCH ×2 (10:11→20:14)
--- NOTE | 2020-10-08 10:15 | NUR ---
patient refused to go to MRI, risks and benefits explained Addendum: 10/08/20 at 1017 by SABA HERNANDEZ RN RN attending made aware
[2020-10-08 11:25] VITALS: BP 123/69
[2020-10-08 15:32] VITALS: BP 98/57
[2020-10-08] MEDS ORDERED: NEUTRA PHOS PACKET PO ONE (16:00)
[2020-10-08] MEDS: MIRTAZAPINE 15 MG TABLET PO SCH (17:01)
--- NOTE | 2020-10-08 19:33 | NUR ---
alert, oriented x4, no acute distress noted, report given to night worker nurse
[2020-10-08] MEDS: TAMSULOSIN HCL 0.4 MG CAP.SR.24H PO SCH (20:14)
[2020-10-08 20:42] VITALS: BP 120/73
[2020-10-08] MEDS ORDERED: METRONIDAZOLE 500 MG TABLET PO SCH (22:00)
[2020-10-09 04:00] VITALS: BP 140/90
[2020-10-09 06:40] LABS: CARBON DIOXIDE 34 mmol/L (21-32); CHLORIDE 100 mmol/L (98-107); CREATININE 0.6 mg/dL (0.6-1.3); GLUCOSE 112 mg/dL (74-106); PHOSPHOROUS 2.7 mg/dL (2.5-4.9); POTASSIUM 3.9 mmol/L (3.5-5.1); UREA NITROGEN, BLOOD 15 mg/dL (7-18)
--- NOTE | 2020-10-09 07:06 | NUR ---
No acute distress noted. Patient able to make needs known. Colostomy bag changed, stoma is pink in color. Safety and comfort provided. No other issues or concerns at this time, will endorse to day shift.
--- NOTE | 2020-10-09 07:30 | NUR ---
Patient received in bed, alert and oriented x4. On RA with no SOB or difficulties breathing. Patient expresses he wants his methadone and informed him that he is due for it later this morning and he expressed understanding. Patient has colostomy on the left side intact and clean. Urinal at bedside. Right UA midline patent with no redness or swelling noted at this time. Call light and personal belongings within easy reach. Will continue to monitor.
[2020-10-09] MEDS: ALBUTEROL SULFATE 2.5 MG/ 0.5 ML NEBU NEB SCH ×4 (08:29→19:30)
[2020-10-09] MEDS: IPRATROPIUM BROMIDE 0.5 MG/2.5 ML NEBU NEB SCH ×4 (08:29→19:30)
[2020-10-09] MEDS: CLOPIDOGREL 75 MG TABLET PO SCH (08:55)
[2020-10-09] MEDS: DOCUSATE SODIUM 100 MG CAPSULE PO SCH ×2 (08:55→17:46)
[2020-10-09] MEDS: MULTIVITAMINS,THERAPEUTIC TABLET PO SCH (08:55)
[2020-10-09] MEDS: NITROFURANTOIN/NITROFURAN MAC 100 MG CAPSULE PO SCH ×2 (08:55→21:34)
[2020-10-09] MEDS: ASPIRIN 81 MG TAB.CHEW PO SCH (08:55)
[2020-10-09] MEDS: FINASTERIDE 5 MG TABLET PO SCH (08:55)
[2020-10-09] MEDS: ALPRAZOLAM 0.25 MG TABLET PO SCH ×2 (08:55→17:46)
[2020-10-09] MEDS: METHADONE HCL 10 MG TABLET PO SCH (08:57)
[2020-10-09] MEDS: LISINOPRIL 10 MG TABLET PO SCH (08:57)
[2020-10-09] MEDS: MEGESTROL ACETATE 400 MG/10 ML LIQUID UDC PO SCH ×2 (08:58→21:34)
[2020-10-09] MEDS: CEFTRIAXONE 1 G in IV DEXTROSE 5% 50 ML IV SCH (09:03)
[2020-10-09] MEDS: Z GUARD REMEDY PASTE 57 GM TUBE TOP SCH ×2 (09:04→21:35)
[2020-10-09] MEDS: CLOTRIMAZOLE 1% CREAM 30 GM TUBE TP SCH ×2 (09:05→21:35)
[2020-10-09] MEDS: ENSURE ENLIVE (VAN) 240 ML LIQUID PO SCH ×3 (09:05→17:47)
[2020-10-09 12:00] VITALS: BP 128/88
[2020-10-09 15:42] VITALS: BP 121/81
[2020-10-09] MEDS: MIRTAZAPINE 15 MG TABLET PO SCH (17:52)
[2020-10-09 20:10] VITALS: BP 116/79
[2020-10-09] MEDS: TAMSULOSIN HCL 0.4 MG CAP.SR.24H PO SCH (21:35)
[2020-10-10 04:15] VITALS: BP 115/81
[2020-10-10 07:04] LABS: ALANINE AMINOTRANSFERASE 20 U/L (16-63); ALKALINE PHOSPHATASE 120 U/L (50-136); ASPARTATE AMINOTRANSFERASE 18 U/L (15-37); BILIRUBIN,TOTAL 0.2 mg/dL (0.2-1.0); CARBON DIOXIDE 35 mmol/L (21-32); CHLORIDE 99 mmol/L (98-107); CREATININE 0.6 mg/dL (0.6-1.3); GLUCOSE 115 mg/dL (74-106); TOTAL PROTEIN, SERUM 5.5 g/dL (6.4-8.2); UREA NITROGEN, BLOOD 16 mg/dL (7-18)
[2020-10-10] MEDS: IPRATROPIUM BROMIDE 0.5 MG/2.5 ML NEBU NEB SCH ×3 (07:09→19:30)
[2020-10-10] MEDS: ALBUTEROL SULFATE 2.5 MG/ 0.5 ML NEBU NEB SCH ×3 (07:09→19:30)
[2020-10-10] MEDS: FINASTERIDE 5 MG TABLET PO SCH (08:01)
[2020-10-10] MEDS: ALPRAZOLAM 0.25 MG TABLET PO SCH ×2 (08:01→16:40)
[2020-10-10] MEDS: METHADONE HCL 10 MG TABLET PO SCH (08:01)
[2020-10-10] MEDS: ASPIRIN 81 MG TAB.CHEW PO SCH (08:01)
[2020-10-10] MEDS: MULTIVITAMINS,THERAPEUTIC TABLET PO SCH (08:01)
[2020-10-10] MEDS: DOCUSATE SODIUM 100 MG CAPSULE PO SCH ×2 (08:01→16:40)
[2020-10-10] MEDS: MEGESTROL ACETATE 400 MG/10 ML LIQUID UDC PO SCH ×3 (08:02→20:11)
[2020-10-10] MEDS: LISINOPRIL 10 MG TABLET PO SCH (08:02)
[2020-10-10] MEDS: CLOPIDOGREL 75 MG TABLET PO SCH (08:02)
[2020-10-10] MEDS: NITROFURANTOIN/NITROFURAN MAC 100 MG CAPSULE PO SCH ×2 (08:02→20:11)
[2020-10-10] MEDS: ENSURE ENLIVE (VAN) 240 ML LIQUID PO SCH ×3 (08:02→16:40)
[2020-10-10] MEDS: Z GUARD REMEDY PASTE 57 GM TUBE TOP SCH ×2 (08:03→20:11)
[2020-10-10] MEDS: CLOTRIMAZOLE 1% CREAM 30 GM TUBE TP SCH ×2 (08:03→20:11)
[2020-10-10] MEDS: CEFTRIAXONE 1 G in IV DEXTROSE 5% 50 ML IV SCH (09:39)
[2020-10-10 12:00] VITALS: BP 118/81
[2020-10-10 16:00] VITALS: BP 108/79
[2020-10-10] MEDS: MIRTAZAPINE 15 MG TABLET PO SCH (17:16)
[2020-10-10] MEDS: TAMSULOSIN HCL 0.4 MG CAP.SR.24H PO SCH (20:11)
[2020-10-10 20:20] VITALS: BP 119/80
--- NOTE | 2020-10-10 21:08 | NUR ---
Received pt sleeping comfortably. Aroused easily to verbal stimuli. AAO x3-4. No acute distress noted. Denies pain/ discomfort. Due meds given as ordered. Colostomy bag, patent and intact. Midline patent. Safety measures maintained. Call light within reach. Will continue to monitor.
[2020-10-11 04:20] VITALS: BP 107/68
[2020-10-11 07:13] LABS: ALANINE AMINOTRANSFERASE 18 U/L (16-63); ALKALINE PHOSPHATASE 112 U/L (50-136); ASPARTATE AMINOTRANSFERASE 14 U/L (15-37); BILIRUBIN,TOTAL 0.2 mg/dL (0.2-1.0); CARBON DIOXIDE 38 mmol/L (21-32); CHLORIDE 103 mmol/L (98-107); CREATININE 0.5 mg/dL (0.6-1.3); GLUCOSE 107 mg/dL (74-106); POTASSIUM 4.5 mmol/L (3.5-5.1); TOTAL PROTEIN, SERUM 5.2 g/dL (6.4-8.2); UREA NITROGEN, BLOOD 18 mg/dL (7-18)
[2020-10-11] MEDS: ALBUTEROL SULFATE 2.5 MG/ 0.5 ML NEBU NEB SCH ×2 (07:35→11:30)
[2020-10-11] MEDS: IPRATROPIUM BROMIDE 0.5 MG/2.5 ML NEBU NEB SCH ×2 (07:35→11:30)
[2020-10-11] MEDS ORDERED: NITR100C11 PO (08:35)
[2020-10-11] MEDS: DOCUSATE SODIUM 100 MG CAPSULE PO SCH (08:37)
[2020-10-11] MEDS: LISINOPRIL 10 MG TABLET PO SCH (08:38)
[2020-10-11] MEDS: FINASTERIDE 5 MG TABLET PO SCH (08:40)
[2020-10-11] MEDS: NITROFURANTOIN/NITROFURAN MAC 100 MG CAPSULE PO SCH (08:40)
[2020-10-11] MEDS: MULTIVITAMINS,THERAPEUTIC TABLET PO SCH (08:40)
[2020-10-11] MEDS: CLOPIDOGREL 75 MG TABLET PO SCH (08:40)
[2020-10-11] MEDS: ASPIRIN 81 MG TAB.CHEW PO SCH (08:40)
[2020-10-11] MEDS: METHADONE HCL 10 MG TABLET PO SCH (08:40)
[2020-10-11] MEDS: ALPRAZOLAM 0.25 MG TABLET PO SCH (08:40)
[2020-10-11] MEDS: ENSURE ENLIVE (VAN) 240 ML LIQUID PO SCH ×2 (08:40→13:44)
[2020-10-11] MEDS: MEGESTROL ACETATE 400 MG/10 ML LIQUID UDC PO SCH (08:42)
[2020-10-11] MEDS: Z GUARD REMEDY PASTE 57 GM TUBE TOP SCH (08:43)
[2020-10-11] MEDS: CLOTRIMAZOLE 1% CREAM 30 GM TUBE TP SCH (08:45)
--- NOTE | 2020-10-11 08:52 | NUR ---
Received patient awake and responsive this morning. Conversant. Hob elevated. No respiratory distress noted. Colostomy intact. Safety measures in place. Kept comfortable. Call light within reach. Will continue to monitor.
--- NOTE | 2020-10-11 11:11 | NUR ---
Per CM patient going back to [facility] orange picker machine operator by JOHN at 1300.
[2020-10-11 12:00] VITALS: BP 108/79
--- NOTE | 2020-10-11 12:45 | NUR ---
Called Ingrid Ziegler and gave report to Arnie NOVAK.
--- NOTE | 2020-10-11 13:52 | NUR ---
Patient discharged to [facility]. Alert and oriented x3. No sob. Able to make needs known. Denies pain on discharge. Due meds given this morning and tolerated. Discharge instructions relayed to the patient and he verbalized understanding. Patient is encouraged to eat more. He said he will try. Picked up by 2 executive asst from [facility]. Left hospital via [facility] in stable condition.
== END 2020-10-11 14:00 | DRG 177 ==
LOC: ER 12:07 → TRANSITION 20:53 → MEDSURG3 20:54
PROVIDERS: ADMIT Family Medicine; ATTEND Internal Medicine
DX: J69.0 Pneumonitis due to inhalation of food and vomit (principal); N17.0 Acute kidney failure with tubular necrosis; R53.2 Functional quadriplegia; G93.40 Encephalopathy, unspecified; R64 Cachexia; Z68.1 Body mass index [BMI] 19.9 or less, adult; E44.0 Moderate protein-calorie malnutrition; Z16.21 Resistance to vancomycin; E87.2 Acidosis; J44.0 Chronic obstructive pulmonary disease with (acute) lower respiratory infection; N39.0 Urinary tract infection, site not specified; R62.7 Adult failure to thrive; Z93.3 Colostomy status; Z20.822 Contact with and (suspected) exposure to COVID-19; E86.9 Volume depletion, unspecified; R74.8 Abnormal levels of other serum enzymes; B95.2 Enterococcus as the cause of diseases classified elsewhere; D64.9 Anemia, unspecified; E88.09 Other disorders of plasma-protein metabolism, not elsewhere classified; E77.8 Other disorders of glycoprotein metabolism; F32.9 Major depressive disorder, single episode, unspecified; F41.9 Anxiety disorder, unspecified; G89.4 Chronic pain syndrome; R73.03 Prediabetes; Z79.891 Long term (current) use of opiate analgesic; Z87.442 Personal history of urinary calculi; M62.50 Muscle wasting and atrophy, not elsewhere classified, unspecified site; R53.1 Weakness; R73.9 Hyperglycemia, unspecified; K80.50 Calculus of bile duct without cholangitis or cholecystitis without obstruction; R33.9 Retention of urine, unspecified
CPT/HCPCS: 36415; 70030-TC; 71045; 71250; 76705; 78445; 83605; 83690; 83735; 84100; 84443; 85025; 85730; 87040; 87086; 93005; 94640; A4663; A6209; A9537; C1758; G0378; J0456; J0696; J3490; J3590; J7030; J7040; J7060; J8999; Q0167